=== PATIENT | male | born 1940 | race African-American/Black ===

== ENCOUNTER 2016-10-04 11:47 | Inpatient (IN) | payer MEDICARE ==
[~2016-10-04] VITALS: Ht 172.7 cm; Wt 49.7 kg
[~2016-10-04 11:47] MED LIST: ASPI325T; ISOS10TA; NITR.4T; NOVONP2; PRIN5TAB; TOPR25TA2; ZOCO40TA
[2016-10-04] MEDS ORDERED: ASPIRIN 81 MG CHEW TAB ONE (12:35)
[2016-10-04 12:55] LABS: BASOPHIL % 0.6 % (0.0-2.0); EOSINOPHIL # 0.1 TH/MM3 (0-0.4); EOSINOPHIL % 1.1 % (0.0-4.0); HEMATOCRIT 35.2 % (39.0-51.0); HEMO FLAGS DIFF FINAL; LYMPH % 27.2 % (9.0-44.0); LYMPHOCYTE # 1.3 TH/MM3 (1.0-4.8); MEAN CELL VOLUME 89.6 FL (80.0-100.0); MEAN CORPUSCULAR HGB CONC 33.5 % (32.0-36.0); MONO % 8.8 % (0.0-8.0); NEUT % 62.3 % (16.0-70.0); PLATELET COUNT 234 TH/MM3 (150-450); RED BLOOD COUNT 3.93 MIL/MM3 (4.50-5.90); WHITE BLOOD COUNT 4.8 TH/MM3 (4.0-11.0)
--- NOTE | 2016-10-04 13:01 | PD ---
Data Data Orders Orders Aspirin Chew (Aspirin Chew) (10/04/16 12:35) Ct Brain W/O Iv Contrast(Rout) (10/04/16 11:25) Complete Blood Count With Diff (10/04/16 12:35) Act Partial Throm Time (Ptt) (10/04/16 12:35) Prothrombin Time / Inr (Pt) (10/04/16 12:35) Basic Metabolic Profile, Op (10/04/16 12:35) Creatine Kinase (Cpk) (10/04/16 12:35) Troponin I (10/04/16 12:35) Urinalysis - C+S If Indicated (10/04/16 13:32) Admit Order (Ed Use Only) (10/04/16 14:34) Labs Laboratory Tests Test 10/04/16 12:35 10/04/16 13:50 White Blood Count 4.8 TH/MM3 Red Blood Count 3.93 MIL/MM3 Hemoglobin 11.8 GM/DL Hematocrit 35.2 % Mean Corpuscular Volume 89.6 FL Mean Corpuscular Hemoglobin 30.0 PG Mean Corpuscular Hemoglobin Concent 33.5 % Red Cell Distribution Width 14.0 % Platelet Count 234 TH/MM3 Mean Platelet Volume 8.3 FL Neutrophils (%) (Auto) 62.3 % Lymphocytes (%) (Auto) 27.2 % Monocytes (%) (Auto) 8.8 % Eosinophils (%) (Auto) 1.1 % Basophils (%) (Auto) 0.6 % Neutrophils # (Auto) 3.0 TH/MM3 Lymphocytes # (Auto) 1.3 TH/MM3 Monocytes # (Auto) 0.4 TH/MM3 Eosinophils # (Auto) 0.1 TH/MM3 Basophils # (Auto) 0.0 TH/MM3 CBC Comment DIFF FINAL Differential Comment Prothrombin Time 10.7 SEC Prothromb Time International Ratio 1.0 RATIO Activated Partial Thromboplast Time 29.9 SEC Sodium Level 141 MEQ/L Potassium Level 4.0 MEQ/L Chloride Level 106 MEQ/L Carbon Dioxide Level 29.2 MEQ/L Anion Gap 6 MEQ/L Blood Urea Nitrogen 19 MG/DL Creatinine 1.28 MG/DL Estimat Glomerular Filtration Rate 67 ML/MIN Fasting Glucose 161 MG/DL Calcium Level 8.9 MG/DL Total Creatine Kinase 45 U/L Troponin I LESS THAN 0.02 NG/ML Urine Color YELLOW Urine Turbidity CLEAR Urine pH 5.5 Urine Specific [place] 1.015 Urine Protein 30 mg/dL Urine Glucose (UA) 300 mg/dL Urine Ketones NEG mg/dL Urine Occult Blood NEG Urine Nitrite NEG Urine Bilirubin NEG Urine Urobilinogen LESS THAN 2.0 MG/DL Urine Leukocyte Esterase NEG Urine WBC LESS THAN 1 /hpf Urine Mucus FEW /lpf Microscopic Urinalysis Comment CULT NOT INDICATED Urine Opiates Screen NEG Urine Barbiturates Screen NEG Urine Amphetamines Screen NEG Urine Benzodiazepines Screen NEG Urine Cocaine Screen NEG Urine Cannabinoids Screen NEG MDM Supervised Visit with YADI: Yes Narrative Course I, Dr. Sims, have reviewed the advance practice practitioner's documentation and am in agreement, met with the patient face to face, made the diagnosis, and the medical decision making was done by me. *My assessment and Findings: Patient seen and examined by me in addition to Nestor Wade PA-C. Patient had awoken with right-sided weakness and some difficulty finding words. According to his the symptoms are now resolved. Could represent a TIA and discussed with patient his family my recommendations for workup and admission to the hospital and they're agreeable. There is no indication for stroke alert nor TPA at this time. Admitting Information Admitting Physician Requests: Observation Condition: Stable Julian Sims MD Oct 04, 2016 13:01
[2016-10-04 13:03] LABS: APTT (PATIENT) 29.9 SEC (24.3-30.1); PROTHROMBIN TIME - PATIENT 10.7 SEC (9.8-11.6)
[2016-10-04 13:12] LABS: ANION GAP 6 MEQ/L (5-15); BICARBONATE 29.2 MEQ/L (21.0-32.0); BLOOD UREA NITROGEN 19 MG/DL (7-18); CHLORIDE 106 MEQ/L (98-107); GLOMERULAR FILTRATION RATE 67 ML/MIN (>89); GLUCOSE,FASTING 161 MG/DL (74-99); SODIUM (NA) 141 MEQ/L (136-145)
[2016-10-04 13:16] LABS: CREATINE KINASE 45 U/L (39-308)
[2016-10-04] MEDS ORDERED: TOPR25TA PO (13:20)
[2016-10-04] MEDS ORDERED: ASPI1TAB91 PO (13:20)
[2016-10-04] MEDS ORDERED: LISI-519 PO (13:20)
[2016-10-04] MEDS ORDERED: PYRI100T PO (13:20)
[2016-10-04] MEDS ORDERED: CILO50TA PO (13:20)
[2016-10-04] MEDS ORDERED: SIMV10TA PO (13:20)
--- NOTE | 2016-10-04 13:43 | PD ---
HPI Chief Complaint: Neuro Symptoms/ Deficits Time Seen by Provider: 13:35 Travel History International Travel<30 days: No Contact w/Intl Traveler<30days: No History of Present Illness HPI Patient comes in with his son complaining of slurred speech and confusion that was first noticed between 9 and 10 AM this morning. Patient's last seen normal last night. Son reports that symptoms have improved and continued to improve. States patient has a history of stroke in the past. Patient denies any chest pain, shortness of breath, nausea, vomiting, headache, numbness or tingling anywhere, loss or change in bowel or bladder, or other concerns. Son denies doing anything for this prior to coming to the emergency department. Patient reportedly took his dose of baby aspirin this morning. PFSH Past Medical History Cardiac Catheterization: Yes (2003) High Cholesterol: Yes Diabetes: Yes Diminished Hearing: No Hypertension: Yes Psychiatric: No Myocardial Infarction: Yes (2001 AND 2003) Social History Alcohol Use: No Tobacco Use: Yes (1 PPD FOR 40 YEARS) Substance Use: No Allergies-Medications (Allergen,Severity, Reaction): Coded Allergies: No Known Allergies (Verified Allergy, Severe, 07/19/06) Reported Meds & Prescriptions Reported Meds & Active Scripts Active Reported Toprol XL (Metoprolol Succinate) 25 Mg Tab 12.5 Mg PO DAILY Lisinopril 5 Mg Tab 5 Mg PO HS Cilostazol 50 Mg Tab 50 Mg PO BID Simvastatin 10 Mg Tab 10 Mg PO HS Vitamin B-6 (Pyridoxine HCl) 100 Mg Tab 100 Mg PO DAILY Aspirin Adult Low Strength (Aspirin) 81 Mg Tabdr 81 Mg PO DAILY Review of Systems Except as stated in HPI: all other systems reviewed are Neg Physical Exam Narrative GENERAL: Well-developed, well nourished, in no acute distress, and non-ill appearing. SKIN: Focused skin assessment warm and dry. HEAD: Atraumatic. Normocephalic. EYES: Pupils equal and round. EOMI. No scleral icterus. No injection or drainage. ENT: No nasal bleeding or discharge. Mucous membranes pink and moist. NECK: Trachea midline. Supple. No nuclear rigidity. CARDIOVASCULAR: Regular rate and rhythm. No murmur appreciated. Radial 2+, intact, and equal bilaterally. RESPIRATORY: No accessory muscle use. No respiratory distress. Clear to auscultation. Breath sounds equal bilaterally. GASTROINTESTINAL: Abdomen soft, non-tender, nondistended, and no guarding. Hepatic and splenic margins not palpable. Normal bowel sounds 4. No pulsatile mass. MUSCULOSKELETAL: No obvious deformities. No clubbing. No cyanosis. No edema. Full range of motion. Right BKA noted. Shoulder:FROM equal BL with passive flexion, extension, Abduction, Adduction, internal/external rotation, and pronation/supination. Sensation equal BL deltoid muscles. Pulses equal BL distal to injury. Capillary refill less than 2 seconds distal to injury and equal BL. FROM distal to injury and equal BL. Strength distal to injury equal BL. NV intact distal to injury equal BL. Flexion and extension of thumb equal BL. Equal strength and movement with abduction/adductions of BL fingers. Dealer Support Technician strength equal BL. NEUROLOGICAL: Awake and alert. No obvious cranial nerve deficits. Motor grossly within normal limits. Normal speech. Small slightly asymmetrical on the left with mild deviation of the tongue to the right, which son reports is new, but improving. Equal rise and fall of eyebrows bilaterally. No pronator drift. PSYCHIATRIC: Appropriate mood and affect; insight and judgment normal. Data Data Orders Orders Aspirin Chew (Aspirin Chew) (10/04/16 12:35) Ct Brain W/O Iv Contrast(Rout) (10/04/16 11:25) Complete Blood Count With Diff (10/04/16 12:35) Act Partial Throm Time (Ptt) (10/04/16 12:35) Prothrombin Time / Inr (Pt) (10/04/16 12:35) Basic Metabolic Profile, Op (10/04/16 12:35) Creatine Kinase (Cpk) (10/04/16 12:35) Troponin I (10/04/16 12:35) Urinalysis - C+S If Indicated (10/04/16 13:32) Admit Order (Ed Use Only) (10/04/16 14:34) Labs Laboratory Tests Test 10/04/16 12:35 10/04/16 13:50 White Blood Count 4.8 TH/MM3 Red Blood Count 3.93 MIL/MM3 Hemoglobin 11.8 GM/DL Hematocrit 35.2 % Mean Corpuscular Volume 89.6 FL Mean Corpuscular Hemoglobin 30.0 PG Mean Corpuscular Hemoglobin Concent 33.5 % Red Cell Distribution Width 14.0 % Platelet Count 234 TH/MM3 Mean Platelet Volume 8.3 FL Neutrophils (%) (Auto) 62.3 % Lymphocytes (%) (Auto) 27.2 % Monocytes (%) (Auto) 8.8 % Eosinophils (%) (Auto) 1.1 % Basophils (%) (Auto) 0.6 % Neutrophils # (Auto) 3.0 TH/MM3 Lymphocytes # (Auto) 1.3 TH/MM3 Monocytes # (Auto) 0.4 TH/MM3 Eosinophils # (Auto) 0.1 TH/MM3 Basophils # (Auto) 0.0 TH/MM3 CBC Comment DIFF FINAL Differential Comment Prothrombin Time 10.7 SEC Prothromb Time International Ratio 1.0 RATIO Activated Partial Thromboplast Time 29.9 SEC Sodium Level 141 MEQ/L Potassium Level 4.0 MEQ/L Chloride Level 106 MEQ/L Carbon Dioxide Level 29.2 MEQ/L Anion Gap 6 MEQ/L Blood Urea Nitrogen 19 MG/DL Creatinine 1.28 MG/DL Estimat Glomerular Filtration Rate 67 ML/MIN Fasting Glucose 161 MG/DL Calcium Level 8.9 MG/DL Total Creatine Kinase 45 U/L Troponin I LESS THAN 0.02 NG/ML Urine Color YELLOW Urine Turbidity CLEAR Urine pH 5.5 Urine Specific [place] 1.015 Urine Protein 30 mg/dL Urine Glucose (UA) 300 mg/dL Urine Ketones NEG mg/dL Urine Occult Blood NEG Urine Nitrite NEG Urine Bilirubin NEG Urine Urobilinogen LESS THAN 2.0 MG/DL Urine Leukocyte Esterase NEG Urine WBC LESS THAN 1 /hpf Urine Mucus FEW /lpf Microscopic Urinalysis Comment CULT NOT INDICATED MDM Medical Decision Making Medical Screen Exam Complete: Yes Emergency Medical Condition: Yes Interpretation(s) EKG reviewed by Dr. Sims which shows sinus rhythm with ventricular rate of 70. No STEMI. CT the head read by the radiologist shows: Cerebral atrophy and chronic ischemic small vessel vasculopathy. Differential Diagnosis CVA, TIA, electrolyte abnormality, acute coronary syndrome, UTI, Narrative Course Patient was seen and examined. IV was established. Patient was in playground monitor. Initial laboratory neurological studies were ordered. Patient was given additional aspirin. Discussed patient with Dr. Sims, who saw and evaluated patient and is in agreement with plan of care. Discussed all laboratory and radiological findings with patient. Patient is agreeable for admission. All questions were answered. Patient remained stable throughout ED course. Discussed patient with residents, who are agreeable to admit the patient. Physician Communication Physician Communication [phone] this patient with residents hydroponics worker for Dr. Hastings, who are agreeable to admit the patient. Diagnosis Primary Impression: TIA (transient ischemic attack) Qualified Codes: G45.9 - Transient cerebral ischemic attack, unspecified Admitting Information Admitting Physician Requests: Observation Condition: Stable Daniel Wade Oct 04, 2016 13:43
--- NOTE | 2016-10-04 13:59 | RADRPT ---
EXAM DATE/TIME: 10/04/2016 13:33 [facility] COMPARISON: No previous studies available for comparison. INDICATIONS : Altered mental status today. RADIATION DOSE: 56.35 CTDIvol (mGy) MEDICAL HISTORY : Hypertension. Cardiovascular disease diabetes SURGICAL HISTORY : None. ENCOUNTER: Initial ACUITY: 1 day PAIN SCALE: 6/10 LOCATION: Right frontal head TECHNIQUE: Multiple contiguous axial images were obtained of the head. Using automated exposure control and adj ustment of the mA and/or kV according to patient size, radiation dose was kept as low as reasonably a chievable to obtain optimal diagnostic quality images. DICOM format image data is available electro nically for review and comparison. FINDINGS: CEREBRUM: The ventricles are normal for age. Cerebral atrophy. Minimal areas of low attenuation adjacent to the periventricular white matter. No evidence of midline shift, mass lesion, hemorrhage or acute infarc tion. No extra-axial fluid collections are seen. POSTERIOR FOSSA: The cerebellum and brainstem are intact. The 4th ventricle is midline. The cerebellopontine angle i s unremarkable. EXTRACRANIAL: The visualized portion of the orbits is intact. SKULL: The calvaria is intact. No evidence of skull fracture. CONCLUSION: Cerebral atrophy and chronic ischemic small vessel vasculopathy. Romario Becerra MD on October 04, 2016 at 13:57 Board Certified Radiologist. This report was verified electronically.
[2016-10-04 14:21] LABS: BLOOD, URINE NEG (NEG); COMMENT (UR) CULT NOT INDICATED; CULTURE IF INDICATED CULT NOT INDICATED; GLUCOSE,URINE 300 mg/dL (NEG); KETONE, URINE NEG (NEG); MUCUS URINE FEW /lpf (OCC); NITRITE,URINE NEG (NEG); PH, URINE 5.5 (5.0-8.5); URINE COLOR YELLOW (YELLW/STRAW)
--- NOTE | 2016-10-04 15:26 | HHI.HP ---
[facility] Service Family Medicine Primary Care Physician Mike Short MD Admission Diagnosis TIA Diagnoses: International Travel<30 Days: No Contact w/Intl Traveler<30days: No History of Present Illness Patient is a 76-year-old male with a past medical history of hypertension and diabetes presenting to the ED with transient altered mental status. Patient states that he woke this morning not able to talk correctly and answer questions. He felt something wasn't right. His son subsequently drove him to the hospital where his symptoms resolved. He states that he has been compliant with his medications at home. He says that he has been having slight headaches, no dizziness, no numbness, but tingling in the tips of his fingers for a while. He felt weak muscle weakness nor had facial droop this morning. He has not experienced anything like this before. No prior strokes. (Myranda Ayon MD R1) Review of Systems Constitutional: COMPLAINS OF: Weight loss (lost 10 lbs), DENIES: Fever, Chills Eyes: DENIES: Blurred vision Ears, nose, mouth, throat: COMPLAINS OF: Hearing loss (due to age), DENIES: Tinnitus, Vertigo Respiratory: DENIES: Cough, Shortness of breath Cardiovascular: DENIES: Chest pain, Palpitations Gastrointestinal: COMPLAINS OF: Diarrhea (for a few days, twice/day, watery, no blood), DENIES: Abdominal pain, Constipation Musculoskeletal: DENIES: Muscle aches, Joint Swelling Integumentary: DENIES: Rash Hematologic/lymphatic: DENIES: Bruising Immunologic/allergic: DENIES: Eczema Neurologic: COMPLAINS OF: Headache, DENIES: Localized weakness, Seizures (Myranda Ayon MD R1) Past Family Social History Past Medical History HTN DM Heart valve disease Past Surgical History 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 SKIN: No rashes, ecchymoses, stage II pressure ulcer 2 cm x 4 cm at the tailbone left of center. Cool and dry. HEAD: Atraumatic. Normocephalic. No temporal or scalp tenderness. EYES: Pupils equal round and reactive. Extraocular motions intact. No scleral icterus. No injection or drainage. ENT: Nose without bleeding, purulent drainage or septal hematoma. Throat without erythema, tonsillar hypertrophy or exudate. Uvula midline. Airway patent. NECK: Trachea midline. No JVD or lymphadenopathy. Supple, nontender, no meningeal signs. CARDIOVASCULAR: Regular rate and rhythm without murmurs, gallops, or rubs. RESPIRATORY: Clear to auscultation. Breath sounds equal bilaterally. No wheezes , rales, or rhonchi. GASTROINTESTINAL: Abdomen soft, non-tender, nondistended. No hepato-splenomegaly , or palpable masses. No guarding. MUSCULOSKELETAL: [id number] amputation on right leg. Extremity without clubbing, cyanosis, or edema. No joint tenderness, effusion, or edema noted. No calf tenderness. Negative Homans sign bilaterally. NEUROLOGICAL: Awake and alert. Cranial nerves II through XII intact. Motor and sensory grossly within normal limits. Five out of 5 muscle strength in all muscle groups, but dorsiflexion and plantar flexion in left foot 4/5. Normal speech. Laboratory Laboratory Tests Test 10/04/16 12:35 10/04/16 13:50 White Blood Count 4.8 Red Blood Count 3.93 Hemoglobin 11.8 Hematocrit 35.2 Mean Corpuscular Volume 89.6 Mean Corpuscular Hemoglobin 30.0 Mean Corpuscular Hemoglobin Concent 33.5 Red Cell Distribution Width 14.0 Platelet Count 234 Mean Platelet Volume 8.3 Neutrophils (%) (Auto) 62.3 Lymphocytes (%) (Auto) 27.2 Monocytes (%) (Auto) 8.8 Eosinophils (%) (Auto) 1.1 Basophils (%) (Auto) 0.6 Neutrophils # (Auto) 3.0 Lymphocytes # (Auto) 1.3 Monocytes # (Auto) 0.4 Eosinophils # (Auto) 0.1 Basophils # (Auto) 0.0 CBC Comment DIFF FINAL Differential Comment Prothrombin Time 10.7 Prothromb Time International Ratio 1.0 Activated Partial Thromboplast Time 29.9 Sodium Level 141 Potassium Level 4.0 Chloride Level 106 Carbon Dioxide Level 29.2 Anion Gap 6 Blood Urea Nitrogen 19 Creatinine 1.28 Estimat Glomerular Filtration Rate 67 Fasting Glucose 161 Calcium Level 8.9 Total Creatine Kinase 45 Troponin I LESS THAN 0.02 Urine Color YELLOW Urine Turbidity CLEAR Urine pH 5.5 Urine Specific [place] 1.015 Urine Protein 30 Urine Glucose (UA) 300 Urine Ketones NEG Urine Occult Blood NEG Urine Nitrite NEG Urine Bilirubin NEG Urine Urobilinogen LESS THAN 2.0 Urine Leukocyte Esterase NEG Urine WBC LESS THAN 1 Urine Mucus FEW Microscopic Urinalysis Comment CULT NOT INDICATED (Myranda Ayon MD R1) Result Diagram: 10/04/16 1235 10/04/[address] brain w/o contrast: Cerebral atrophy and chronic ischemic small vessel vasculopathy. US carotid arteries: No evidence for hemodynamically significant stenosis. (Myranda Ayon MD R1) Caprini VTE Risk Assessment Caprini VTE Risk Assessment: Mod/High Risk (score >= 2) Caprini Risk Assessment Model Point Value = 1 Point Value = 2 Point Value = 3 Point Value = 5 Age 41-60 Minor surgery BMI > 25 kg/m2 Swollen legs Varicose veins or History of unexplained or recurrent spontaneous Oral contraceptives or hormone replacement Sepsis (< 1 month) Serious lung disease, including pneumonia (< 1 month) Abnormal pulmonary function Acute myocardial infarction Congestive heart failure (< 1 month) History of inflammatory bowel disease Medical patient at bed rest Age 61-74 Arthroscopic surgery Major open surgery (> 45 min) Laparoscopic surgery (> 45 min) Malignancy Confined to bed (> 72 hours) Immobilizing plaster cast Central venous access Age >= 75 History of VTE Family history of VTE Factor V Leiden Prothrombin [id number] Lupus anticoagulant Anticardiolipin antibodies Elevated serum homocysteine Heparin-induced thrombocytopenia Other congenital or acquired thrombophilia Stroke (< 1 month) Elective arthroplasty Hip, pelvis, or leg fracture Acute spinal cord injury (< 1 month) Prophylaxis Regimen Total Risk Factor Score Risk Level Prophylaxis Regimen 0-1 Low Early ambulation 2 Moderate Order ONE of the following: *Sequential Compression Device (SCD) *Heparin 5000 units SQ BID 3-4 Higher Order ONE of the following medications: *Heparin 5000 units SQ TID *Enoxaparin/Lovenox 40 mg SQ daily (WT < 150 kg, CrCl > 30 mL/min) *Enoxaparin/Lovenox 30 mg SQ daily (WT < 150 kg, CrCl > 10-29 mL/min) *Enoxaparin/Lovenox 30 mg SQ BID (WT < 150 kg, CrCl > 30 mL/min) AND/OR *Sequential Compression Device (SCD) 5 or more Highest Order ONE of the following medications: *Heparin 5000 units SQ TID (Preferred with Epidurals) *Enoxaparin/Lovenox 40 mg SQ daily (WT < 150 kg, CrCl > 30 mL/min) *Enoxaparin/Lovenox 30 mg SQ daily (WT < 150 kg, CrCl > 10-29 mL/min) *Enoxaparin/Lovenox 30 mg SQ BID (WT < 150 kg, CrCl > 30 mL/min) AND *Sequential Compression Device (SCD) (Myranda Ayon MD R1) Assessment and Plan Assessment and Plan Mr. Branham is a 76-year-old male with a past medical history of hypertension and diabetes presenting to the ED with transient dyslogia. Likely a TIA since symptoms have now resolved versus CVA Code Status Full code Discussed Condition With Dr. Mejia and Dr. Hastings (Myranda Ayon MD R1) Attending Attestation THIS CASE WAS DISCUSSED WITH THE RESIDENT PHYSICIANS. I HAVE REVIEWED THE RECORD AND AGREE WITH THE ABOVE NOTE AND PLAN OF CARE WAS DISCUSSED. I HAVE AUTHORIZED THE ORDER FOR ADMISSION TO AN IN-PATIENT STATUS. (Tay Hastings MD) Problem List: (1) TIA (transient ischemic attack) ICD Codes: G45.9 - Transient cerebral ischemic attack, unspecified Status: Acute Plan: Dyslogia resolved after admission to hospital. Most likely a TIA. CT brain w/o contrast showed cerebral atrophy and chronic ischemic small vessel vasculopathy. Brain MRI and head MRA pending report by radiologist. Stroke workup. US carotid arteries: No evidence for hemodynamically significant stenosis. -Neurology consult, appreciate recommendations -Ordered echocardiogram -Ordered MRI brain without contrast -Ordered MRA brain without contrast -Ordered ultrasound carotid arteries -Troponins 2 -EKG 2 -A.m. labs (2) Hypertension ICD Codes: I10 - Essential (primary) hypertension Status: Chronic Plan: At-home medications held -Permissive hypertension (3) Diabetes mellitus ICD Codes: E11.9 - Type 2 diabetes mellitus without complications Status: Chronic Plan: -At-home medications held -Sliding scale insulin -Regular blood glucose checks (4) Hyperlipemia ICD Codes: E78.5 - Hyperlipidemia, unspecified Status: Chronic Plan: Continue at home Cilostazol 50mg po Atorvastatin 40 mg by mouth at bedtime (5) FEN Status: Acute Plan: Fluids: Patient should be able to hydrate by mouth Electrolytes: Monitor and replace as needed Nutrition: Regular diet after swallow tests by nurse DVT prophylaxis: Enoxaparin Tylenol as needed for pain (Myranda Ayon MD R1) Physician Certification 2 Midnight Certification Type: Admission for Inpatient Services Order for Inpatient Services The services are ordered in accordance with Medicare regulations or non- Medicare payer requirements, as applicable. In the case of services not specified as inpatient-only, they are appropriately provided as inpatient services in accordance with the 2-midnight benchmark. Estimated LOS (days): 2 days is the estimated time the patient will need to remain in the hospital, assuming treatment plan goals are met and no additional complications. Post-Hospital Plan: Home (Myranda Ayon MD R1) Problem Qualifiers (1) TIA (transient ischemic attack): Qualified Codes: G45.9 - Transient cerebral ischemic attack, unspecified (2) Hypertension: Qualified Codes: I10 - Essential (primary) hypertension (3) Diabetes mellitus: (4) Hyperlipemia: Qualified Codes: E78.5 - Hyperlipidemia, unspecified Myranda Ayon MD R1 Oct 04, 2016 15:26 Tay Hastings MD Oct 05, 2016 16:26
[2016-10-04] MEDS ORDERED: SODIUM CHLORIDE 0.9% FLUSH 5 ML FLUSH IV FLUSH PRN (15:45)
[2016-10-04] MEDS ORDERED: GLUCAGON 1 MG/ML VIAL OTHER PRN (15:45)
[2016-10-04] MEDS ORDERED: DEXTROSE 50% IN WATER 50 ML VIAL(D50) IV PUSH PRN (15:45)
--- NOTE | 2016-10-04 16:46 | RADRPT ---
EXAM DATE/TIME: 10/04/2016 15:52 [facility] COMPARISON: No previous studies available for comparison. INDICATIONS : Cerebrovascular accident. MEDICAL HISTORY : Myocardial infarction. Hypercholesterolemia. Hypertension. Hearing loss. Glasse s. Diabetes. SURGICAL HISTORY : Cardiac Catheterization. ENCOUNTER: Initial ACUITY: 1 day PAIN SCORE: 0/10 LOCATION: Bilateral neck PEAK SYSTOLIC VELOCITIES (cm/sec): ICA/CCA RATIO: Right: 1.7 Left: 1.6 ICA: Right: 89.2 Left: 85.3 CCA: Right: 53.7 Left: 54.3 ECA: Right: 64.7 Left: 51.4 VERTEBRAL: Right: 58.1 antegrade Left: 45.3 antegrade Elevated flow velocities and ICA/CCA ratios have been found to correlate with increased degrees of vessel stenosis, calculated as percentage of diameter relative to a normal segment of distal ICA/CCA FINDINGS: Antegrade flow is seen in both vertebral arteries. There is moderate atherosclerotic plaquing at the origin of both ICAs without any significant stenosis. CONCLUSION: No evidence for hemodynamically significant stenosis. Dion Petit MD on October 04, 2016 at 16:44 Board Certified Radiologist. This report was verified electronically.
[2016-10-04 17:41] VITALS: BP 148/69; PULSE 71; RESP 16; O2SAT 100
[2016-10-04] MEDS: ENOXAPARIN SODIUM 40 MG/0.4 ML SYRINGE SQ SCH (17:50)
[2016-10-04] MEDS: INSULIN ASPART SUPPLEMENTAL SCALE SQ SCH ×2 (17:50→21:00)
[2016-10-04 19:30] VITALS: O2SAT 98
--- NOTE | 2016-10-04 20:09 | RADRPT ---
EXAM DATE/TIME: 10/04/2016 18:23 [facility] COMPARISON: MRI BRAIN W/O CONTRAST, October 04, 2016, 18:23. INDICATIONS : Slurred speech. Difficulty following commands. MEDICAL HISTORY : Hypertension. Diabetes mellitus type 2. Cardiovascular disease. TIA. SURGICAL HISTORY : Valve replacement. BKA. ENCOUNTER: Initial ACUITY: 1 day PAIN SCORE: 0/10 LOCATION: cranial Please note a normal MRA of the brain does not entirely exclude the possibility of a small aneurysm, nor the possibility of distal intracranial vessel disease. TECHNIQUE: 3D time of flight MRA was performed. Source images, multiplanar STS MIP, and 3D volume MIP reconstru ctions were reviewed. FINDINGS: There is excellent visualization of the major intracranial arteries out to the second-order branch ve ssels. There is no evidence for aneurysm, vessel truncation or stenosis, and no evidence for vascula r malformation. CONCLUSION: Normal examination. Dion Petit MD on October 04, 2016 at 20:03 Board Certified Radiologist. This report was verified electronically.
--- NOTE | 2016-10-04 20:10 | RADRPT ---
EXAM DATE/TIME: 10/04/2016 18:23 [facility] COMPARISON: MRA BRAIN W/O CONTRAST, October 04, 2016, 18:23. US CAROTID ARTERIES, October 04, 2016, 15:52. CT BRA IN W/O CONTRAST, October 04, 2016, 13:33. INDICATIONS : Slurred speech. Difficulty following commands. MEDICAL HISTORY : Hypertension. Diabetes mellitus type 2. Cardiovascular disease. TIA. Neuropathy. SURGICAL HISTORY : BKA. Valve replacement. ENCOUNTER: Initial ACUITY: 1 day PAIN SCORE: 0/10 LOCATION: cranial TECHNIQUE: Multiplanar, multisequence MRI of the brain was performed without contrast. FINDINGS: There is no evidence for intracranial hemorrhage, mass effect, mass lesions, edema, or extra-axial fl uid collections. There are no signs of acute infarction for technique. The diffusion portion is unre markable. Slight degree of brain atrophy is seen. Slight periventricular white matter changes are see n nonspecific mostly consistent with chronic small vessel ischemic changes. CONCLUSION: Chronic atrophic and small vessel ischemic changes without any evidence for acute hem orrhage or mass effect. Dion Petit MD on October 04, 2016 at 20:07 Board Certified Radiologist. This report was verified electronically.
[2016-10-04 20:50] VITALS: BP 162/75; PULSE 78; RESP 18; TEMP 96.7; O2SAT 99
[2016-10-04] MEDS ORDERED: ATORVASTATIN 10 MG TAB PO SCH (21:00)
--- NOTE | 2016-10-04 21:47 | EKG ---
Date Performed: 10/04/2016 Time Performed: 12:57:28 PTAGE: 76 years EKG: Sinus rhythm POSSIBLE EARLY REPOLARIZATION ABNORMALITY NO PREVIOUS TRACING DOCTOR: Lan Marie Interpretating Date/Time 10/04/2016 21:45:36
--- NOTE | 2016-10-04 22:42 | MB ---
cc: MIKKI CARTER DATE OF CONSULTATION 10/04/2016 HISTORY OF THE PRESENT ILLNESS A 76-year-old, hypertension, insulin dependent diabetes, hypercholesterolemia, MD, cardiac stent. He takes a baby aspirin a day and this morning he felt a little confused in his mind, some slurred speech, came into the hospital. He denied any stroke to me although the chart says he has had a stroke in the past. REVIEW OF SYSTEMS He denies any atrial fibrillation, Coumadin, renal, hepatic, or pulmonary disease, thyroid disease, lupus, ulcer, cancer, seizure or stroke. SOCIAL HISTORY Not a smoker or a drinker. Lives with his . FAMILY HISTORY Negative for cancer, seizure or stroke. MEDICATIONS At home: 1. 81 of aspirin. 2. B6. 3. Simvastatin. 4. Cilostazol. 5. Lisinopril. 6. Toprol. ALLERGIES NO KNOWN DRUG ALLERGIES. PAST MEDICAL AND SURGICAL HISTORY 1. History of cardiac catheterization. 2. Heart valve replacement. 3. Right leg amp. PHYSICAL EXAMINATION VITAL SIGNS: On examination sinus rhythm 148/69, afebrile, 84, 18. NECK: There were no carotid bruits. CARDIOVASCULAR: Heart was regular rate and rhythm. I did not detect a murmur. NEUROLOGIC: Speech is a little bit slurred but he is not aphasic. Pupils are equal. Visual alcantara full. Extraocular movements intact without nystagmus. Face symmetric with normal sensation. Tongue was midline. No drift. Normal strength in the upper extremities bilaterally and bilateral lower extremities although he has the amputation on the right lower extremity and a left foot drop. The left toe was mute. Pinprick was intact throughout proximal lower extremities, upper extremities and face. LABORATORY DATA CBC is essentially unremarkable. UA 300 of glucose. Positive ketones. Basic metabolic profile is normal, glucose 161. Troponin, CPK is normal. LDL cholesterol was normal 10 years ago. Coags normal. IMAGING CT scan of the brain was performed, there is some atrophy and white matter changes. Carotid ultrasound was done today essentially normal. MRI of the brain performed official report is pending. Review of the films, diffuse atrophy is noted. There is no acute infarct. No hemorrhages noted, although there is [place] artifact in the left intraventricular region posterior. MRA sun'aq of [place] also appears to be intact. IMPRESSION No stroke here. I think we will switch him to Plavix, check his LDL. I am not sure why he has got slurred speech. Do a urine drug screen on him. Some other blood work, but he may be able to be discharged later tomorrow depending on how his echocardiogram looks. We will have to put him for an echocardiogram and Holter monitor. Switch him to Plavix. I would discontinue his aspirin in three days. Check his lipid profile. Check an EEG. MD PENG Anderson/KK /7:58 PM /10:20 PM
[2016-10-04] MEDS: SODIUM CHLORIDE 0.9% FLUSH 5 ML FLUSH IV FLUSH SCH (23:56)
[2016-10-04] MEDS: CLOPIDOGREL 75 MG TAB PO SCH (23:58)
[2016-10-04] MEDS: CILOSTAZOL 50 MG TAB PO SCH (23:58)
[2016-10-05] VITALS (8 sets, daily range): BP systolic 121–154; BP diastolic 62–78; PULSE 67–89; RESP 17–18; TEMP 95.3–96.7; O2SAT 97–100
[2016-10-05 06:01] LABS: AUTOMATED NEUTROPHIL # 1.7 TH/MM3 (1.8-7.7); BASOPHIL % 0.3 % (0.0-2.0); EOSINOPHIL # 0.1 TH/MM3 (0-0.4); EOSINOPHIL % 1.8 % (0.0-4.0); HEMATOCRIT 35.7 % (39.0-51.0); HEMO FLAGS DIFF FINAL; LYMPH % 43.3 % (9.0-44.0); LYMPHOCYTE # 1.7 TH/MM3 (1.0-4.8); MEAN CORPUSCULAR HEMOGLOBIN 30.1 PG (27.0-34.0); MEAN CORPUSCULAR HGB CONC 33.5 % (32.0-36.0); MONO % 10.4 % (0.0-8.0); NEUT % 44.2 % (16.0-70.0); PLATELET COUNT 216 TH/MM3 (150-450); RED BLOOD COUNT 3.97 MIL/MM3 (4.50-5.90); RED CELL DISTRIBUTION WIDTH 13.4 % (11.6-17.2); WHITE BLOOD COUNT 3.9 TH/MM3 (4.0-11.0)
[2016-10-05] MEDS: INSULIN ASPART SUPPLEMENTAL SCALE SQ SCH ×4 (06:40→21:00)
[2016-10-05 07:09] LABS: ANION GAP 6 MEQ/L (5-15); BICARBONATE 26.1 MEQ/L (21.0-32.0); BLOOD UREA NITROGEN 15 MG/DL (7-18); CHLORIDE 106 MEQ/L (98-107); GLOMERULAR FILTRATION RATE 72 ML/MIN (>89); HDL CHOLESTEROL 45.5 MG/DL (40.0-60.0); LDL CHOLESTEROL 150 MG/DL (0-99); POTASSIUM 3.9 MEQ/L (3.5-5.1); SODIUM (NA) 138 MEQ/L (136-145)
--- NOTE | 2016-10-05 07:24 | HHI.PR ---
Subjective Remarks sr Objective Vital Signs Date Time Temp Pulse Resp B/P (MAP) Pulse Ox O2 Delivery O2 Flow Rate FiO2 10/05/16 03:40 96.7 76 17 140/62 (88) 99 10/05/16 00:58 96.4 67 18 153/74 (100) 97 10/04/16 20:50 96.7 78 18 162/75 (104) 99 10/04/16 19:30 98 10/04/16 17:41 71 16 148/69 (95) 100 Room Air I/O 10/04/16 10/04/16 10/04/16 10/05/16 10/05/16 10/05/16 07:00 15:00 23:00 07:00 15:00 23:00 Intake Total 0 ml 0 ml Output Total 300 ml Balance 0 ml -300 ml Intake Oral 0 ml 0 ml Output Urine Total 300 ml # Voids 1 # Bowel Movements 0 0 Result Diagram: 10/05/16 0552 10/05/16 0552 Objective Remarks vff face sym 5/5 t/o speech clearer no aphasia Assessment and Plan Assessment and Plan imp mri /a us neg esr 41 check crp inc ldl ? inc statin dose? if eeg done and echo neg and holter on he can dc later today on plavix and dc asa in two days med team fu crp later today Salvatore Paez MD Oct 05, 2016 07:24
[2016-10-05] MEDS: SODIUM CHLORIDE 0.9% FLUSH 5 ML FLUSH IV FLUSH SCH ×2 (09:00→21:00)
--- NOTE | 2016-10-05 09:26 | HHI.FPPN ---
Subjective Remarks FM Attending Note: Patient seen and examined. S: Chart and all resident physician notes reviewed. In summary this is a 76 year old male who was admitted with an admission diagnosis of TIA. This patient has a past medical history of hypertension and diabetes who presented with transient alteration of his mental status. The patient reported that he awoke the morning of admission and was not able to talk correctly answer questions. From his description it appears that he had difficulty expressing his speech. His son drove him to the hospital but on arrival his symptoms had mostly resolved. At the current time he has no neurologic deficits. This patient has significant chronic medical problems including diabetes, valvular heart disease for which he had a bioprosthetic valve placed. He also has a history of peripheral vascular disease with amputation of his right leg above the knee. He has also been under treatment for a sacral decubitus ulcer. The patient's son reports that this has significantly improved over the last few weeks. The patient reported a 10 pound weight loss over the last month that he apparently had difficulty with diarrhea. Cultures drawn at the MT of his stool reported to him as showing bacteria but the physicians told him that an antibiotic was not indicated. The family has been treating with dietary changes and no diarrhea has mostly resolved. Objective Vitals Vital Signs Date Time Temp Pulse Resp B/P (MAP) Pulse Ox O2 Delivery O2 Flow Rate FiO2 10/05/16 08:00 95.3 78 18 124/69 (87) 100 10/05/16 03:40 96.7 76 17 140/62 (88) 99 10/05/16 00:58 96.4 67 18 153/74 (100) 97 10/04/16 20:50 96.7 78 18 162/75 (104) 99 10/04/16 19:30 98 10/04/16 17:41 71 16 148/69 (95) 100 Room Air I/O 10/04/16 10/04/16 10/04/16 10/05/16 10/05/16 10/05/16 07:00 15:00 23:00 07:00 15:00 23:00 Intake Total 0 ml 0 ml Output Total 300 ml Balance 0 ml -300 ml Intake Oral 0 ml 0 ml Output Urine Total 300 ml # Voids 1 # Bowel Movements 0 0 Result Diagram: 10/05/16 0552 10/05/16 0552 Other Results Item Value Date Time Erythrocyte Sedimentation Rate 41 mm/hr H 10/04/162054 Total Creatine Kinase 45 U/L 10/04/161234 Troponin I LESS THAN 0.02 NG/ML L 10/04/161234 Troponin I LESS THAN 0.02 NG/ML L 10/04/162054 Troponin I LESS THAN 0.02 NG/ML L 10/05/16 0552 Triglycerides Level 127 MG/DL 10/05/1652 Cholesterol Level 221 MG/DL H 10/05/1652 LDL Cholesterol 150 MG/DL H 10/05/16 0552 HDL Cholesterol 45.5 MG/DL 10/05/16551 Cholesterol/HDL Ratio 4.85 RATIO 10/05/16 05 Vitamin B12 Level 692 PG/ML 10/05/16551 Free Thyroxine 1.00 NG/DL 10/05/16551 Thyroid Stimulating Hormone 3rd Gen 1.030 uIU/ML 10/05/16 0552 Anti-Nuclear Antibody Screen POS H 10/04/162054 Rapid Plasma Reagin REACTIVE H 10/04/162054 Urine Specific [place] 1.015 10/04/16 1350 Urine Glucose (UA) 300 mg/dL H 10/04/16 1350 Urine Occult Blood NEG 10/04/16 1350 Urine Nitrite NEG 10/04/16 1350 Urine Leukocyte Esterase NEG 10/04/16 1350 Urine WBC LESS THAN 1 /hpf 10/04/16 1350 Urine Mucus FEW /lpf H 10/04/16 1350 Prothromb Time International Ratio 1.0 RATIO 10/04/16 123 Activated Partial Thromboplast Time 29.9 SEC 10/04/16 1235 Prothrombin Time 10.7 SEC 10/04/16 1235 Imaging Multiple imaging studies are unremarkable. Brain MRI showed chronic atrophic and small vessel ischemic changes without any evidence for acute hemorrhage or mass effect. Carotid ultrasound was negative. Objective Remarks O. CONSTITUTIONAL/GEN: normally nourished, in NAD. EYES: conjunctiva normal, PERRLA, EOMI. LUNGS: clear A-P, respiratory effort is normal. CARDIOVASCULAR: RR without murmur or gallop. No significant edema. GI/ABD: soft without masses, without organomegaly. : no CVA tenderness NEURO: No focal deficits. SKIN: stage III pressure ulcer 2 cm x 4 cm at the tailbone left of center. HEME/LYMPH: no bruising, petechia or significant adenopathy MUSC: back is normal in appearance. R AKA. PSYCH/MENTAL STATUS: Alert and oriented x 3. A/P Assessment and Plan Mr. Branham is a 76-year-old male with a past medical history of hypertension and diabetes presenting to the ED with transient dyslogia. Likely a TIA since symptoms have now resolved versus CVA Problem List: (1) TIA (transient ischemic attack) ICD Codes: G45.9 - Transient cerebral ischemic attack, unspecified Status: Acute Plan: Dyslogia resolved after admission to hospital. Most likely a TIA. CT brain w/o contrast showed cerebral atrophy and chronic ischemic small vessel vasculopathy. Brain MRI and head MRA pending report by radiologist. Stroke workup. US carotid arteries: No evidence for hemodynamically significant stenosis. -Neurology consult, appreciate recommendations -Ordered echocardiogram -Ordered MRI brain without contrast -Ordered MRA brain without contrast -Ordered ultrasound carotid arteries -Troponins 2 -EKG 2 -A.m. labs 10/05/16 Imaging studies have been negative. The patient has been seen initially by neurology who recommends switching aspirin to Plavix. Awaiting further evaluation and tests. (2) Hypertension ICD Codes: I10 - Essential (primary) hypertension Status: Chronic Plan: At-home medications held -Permissive hypertension (3) Sacral decubitus ulcer, stage III ICD Codes: L89.153 - Pressure ulcer of sacral region, stage 3 Plan: 10/05/16 This is been present for several months. By report of the patient's son it is significantly improved over the last several weeks. Will ask nursing wound care to evaluate and suggest treatments. (4) Diabetes mellitus ICD Codes: E11.9 - Type 2 diabetes mellitus without complications Status: Chronic Plan: -At-home medications held -Sliding scale insulin -Regular blood glucose checks (5) Hyperlipemia ICD Codes: E78.5 - Hyperlipidemia, unspecified Status: Chronic Plan: Continue at home Cilostazol 50mg po Atorvastatin 40 mg by mouth at bedtime (6) FEN Status: Acute Plan: Fluids: Patient should be able to hydrate by mouth Electrolytes: Monitor and replace as needed Nutrition: Regular diet after swallow tests by nurse DVT prophylaxis: Enoxaparin Tylenol as needed for pain Problem Qualifiers (1) TIA (transient ischemic attack): Qualified Codes: G45.9 - Transient cerebral ischemic attack, unspecified (2) Hypertension: Qualified Codes: I10 - Essential (primary) hypertension (3) Diabetes mellitus: (4) Hyperlipemia: Qualified Codes: E78.5 - Hyperlipidemia, unspecified Tay Hastings MD Oct 05, 2016 09:26
[2016-10-05] MEDS: ASPIRIN 325 MG TAB PO SCH (10:12)
[2016-10-05] MEDS: PYRIDOXINE HCL 50 MG TAB PO SCH (10:12)
[2016-10-05] MEDS: CLOPIDOGREL 75 MG TAB PO SCH (10:12)
[2016-10-05] MEDS: ENOXAPARIN SODIUM 40 MG/0.4 ML SYRINGE SQ SCH (10:12)
[2016-10-05] MEDS: CILOSTAZOL 50 MG TAB PO SCH ×2 (10:18→22:23)
--- NOTE | 2016-10-05 10:48 | RADRPT ---
EXAM DATE/TIME: 10/05/2016 09:46 [facility] COMPARISON: No previous studies available for comparison. INDICATIONS : Short of breath. MEDICAL HISTORY : Myocardial infarction. Hypertension Diabetes mellitus type II. cardivascular disease, TIA SURGICAL HISTORY : mitral valve surgery. ENCOUNTER: Initial ACUITY: 2 days PAIN SCORE: 0/10 LOCATION: Bilateral chest FINDINGS: A single view of the chest demonstrates the lungs to be symmetrically aerated without evidence of mas s, infiltrate or effusion. Postsurgical features of prior median sternotomy and cardiac valve replace ment. The cardiomediastinal contours are unremarkable. Osseous structures are intact. CONCLUSION: 1. No acute cardiopulmonary disease. Nitesh Ricks MD on October 05, 2016 at 10:46 Board Certified Radiologist. This report was verified electronically.
--- NOTE | 2016-10-05 11:23 | PD.WCN.NOT ---
Wound Consult Description: Sacral scar tissue opening to full thickness wound on L upper buttock stage 3 Communicated with: BRENDAN Love and call placed to Doctor Bart Malcolm Recommendation: Please cleanse L upper buttock wound with normal saline only. Apply skin prep to periwound and before applying adhesive foam dressing. Please change dressing every 3 days or PRN if saturated or dislodged Please obtain [place] airapy bed if not available please obtain [facility] bed. Turn patient every 2 hours and PRN for comfort Additional Information: Patient seen on for evaluation of pressure ulcer to sacrum. Removed old brief and shorts in place and turned patient to L side with minimal assist. Patient noted with Scar tissue to sacral and bilateral upper buttock area that is opening to full thickness wound on L upper buttock. Wound measures 0.8cm x 0.4cm x ~0.2cm. Wound presents with ~50% red granulated tissue and ~50% adipose tissue. Wound is with in scar tissue that measures ~8cm x ~8cm. Scant serous drainage is noted without odor. Periwound presents with intact scar tissue.Wound margins are attached, uneven and well defined.Cleansed wound with normal saline and applied skin prep to periwound before applying adhesive foam dressing.Appears to have previous healed pressure injury that is reopened to full thickness. [facility] Motley [facility] Oct 05, 2016 11:23
[2016-10-05 12:26] LABS: ANA SCREEN POS (NEG)
[2016-10-05] MEDS: SODIUM CHLOR 0.9% 1000 ML INJ 1,000 ML IV SCH ×2 (18:36→22:25)
[2016-10-05] MEDS ORDERED: LEVEMIR SQ (20:36)
[2016-10-05] MEDS ORDERED: NOVORP2 SQ (20:36)
[2016-10-05] MEDS: ATORVASTATIN 80 MG TAB PO SCH (22:23)
[2016-10-05] MEDS: INSULIN DETEMIR 100 UNITS/ML VIAL SQ SCH (22:24)
--- NOTE | 2016-10-05 22:30 | MG ---
cc: NABEEL CARCAMO MD Lab No: Date: 10/05/2016 Age: Sex: M Race: DATE OF [address] Browning. Medical history: 1. History of headache. 2. Heart attack. 3. Hypertension. 4. Renal disease. 5. Diabetes. 6. Tobacco and caffeine abuse. 7. Hypercholesterolemia. 8. With recent onset slurred speech and confusion. MEDICATIONS 1. Aspirin. 2. Lipitor. 3. Plavix. 4. Lovenox. 5. Insulin aspart. DESCRIPTION The background activity is 8-9 Hz alpha located posteriorly bilateral and symmetrical. Attenuates to eye opening, superimposed by beta activity. Hyperventilation was not done. Photic stimulation did not elicit a driving response. During the recording the patient transitioned to stage II sleep with drop out of the background alpha rhythm that was replaced by theta activity and appearance of K complexes. The EEG recording is contaminated by excessive muscle artifact. There is breech rhythm at T3 and T4. There were no electrographic seizures or epileptiform discharges noted during the recording. INTERPRETATION This is an awake and sleep EEG recording. Excess beta activity is a non- specific finding that may be related to medication adverse effect like benzos and barbiturates. Absence of electrographic seizures or epileptiform discharges does not rule out a diagnosis of epilepsy. Clinical correlation is recommended. Nabeel Carcamo MD RGO/KK /9:14 PM /10:24 PM [facility] CENTERJenae
[2016-10-06] VITALS (8 sets, daily range): BP systolic 127–175; BP diastolic 63–90; PULSE 87–91; RESP 16–18; TEMP 96.4–98.3; O2SAT 98–100
[2016-10-06] MEDS: INSULIN ASPART SUPPLEMENTAL SCALE SQ SCH ×4 (06:36→22:12)
--- NOTE | 2016-10-06 06:47 | HHI.PR ---
Subjective Remarks sr Objective Vital Signs Date Time Temp Pulse Resp B/P (MAP) Pulse Ox O2 Delivery O2 Flow Rate FiO2 10/06/16 04:30 96.4 89 16 151/73 (99) 99 10/06/16 00:00 98.3 90 16 131/77 (95) 100 10/05/16 20:45 96.2 87 17 121/65 (83) 99 10/05/16 18:05 89 10/05/16 16:00 95.8 75 17 142/78 (99) 100 10/05/16 12:10 100 21 10/05/16 12:00 95.5 79 18 154/72 (99) 100 10/05/16 08:00 95.3 78 18 124/69 (87) 100 I/O 10/05/16 10/05/16 10/05/16 10/06/16 10/06/16 10/06/16 07:00 15:00 23:00 07:00 15:00 23:00 Intake Total 0 ml 720 ml 240 ml Output Total 300 ml 350 ml Balance -300 ml 720 ml -110 ml Intake Oral 0 ml 720 ml 240 ml Output Urine Total 300 ml 350 ml # Voids 3 # Bowel Movements 0 1 0 Result Diagram: 10/05/16 0552 10/05/16 0552 Objective Remarks vff face sym 5/5 t/o speech clear and nl now abner diarrhea Assessment and Plan Assessment and Plan imp mri /a us neg esr 41 check crp ok inc ldl ? inc statin dose? eeg neg echo pend if echo neg and holter on he can dc later today on plavix and dc asa in one days his rpr pos check fta id consulted jose pos titer pend neurowise doing Salvatore Dickerson MD Oct 06, 2016 06:47
--- NOTE | 2016-10-06 06:51 | HHI.PR ---
Subjective Remarks sr Objective Vital Signs Date Time Temp Pulse Resp B/P (MAP) Pulse Ox O2 Delivery O2 Flow Rate FiO2 10/06/16 04:30 96.4 89 16 151/73 (99) 99 10/06/16 00:00 98.3 90 16 131/77 (95) 100 10/05/16 20:45 96.2 87 17 121/65 (83) 99 10/05/16 18:05 89 10/05/16 16:00 95.8 75 17 142/78 (99) 100 10/05/16 12:10 100 21 10/05/16 12:00 95.5 79 18 154/72 (99) 100 10/05/16 08:00 95.3 78 18 124/69 (87) 100 I/O 10/05/16 10/05/16 10/05/16 10/06/16 10/06/16 10/06/16 07:00 15:00 23:00 07:00 15:00 23:00 Intake Total 0 ml 720 ml 240 ml Output Total 300 ml 350 ml Balance -300 ml 720 ml -110 ml Intake Oral 0 ml 720 ml 240 ml Output Urine Total 300 ml 350 ml # Voids 3 # Bowel Movements 0 1 0 Result Diagram: 10/05/16 0552 10/05/16 0552 Objective Remarks vff face sym 5/5 t/o speech clear and nl now some diarrhea Assessment and Plan Assessment and Plan imp mri /a us neg esr 41 check crp ok inc ldl ? inc statin dose? eeg neg echo pend if echo neg and holter on he can dc later today on plavix and dc asa in one days his rpr pos check fta id consulted jose pos titer pend neurowise doing Salvatore Dickerson MD Oct 06, 2016 06:51
[2016-10-06 07:03] LABS: HEMATOCRIT 34.2 % (39.0-51.0); MEAN CELL VOLUME 89.7 FL (80.0-100.0); MEAN CORPUSCULAR HEMOGLOBIN 30.1 PG (27.0-34.0); MEAN CORPUSCULAR HGB CONC 33.6 % (32.0-36.0); PLATELET COUNT 202 TH/MM3 (150-450); RED BLOOD COUNT 3.82 MIL/MM3 (4.50-5.90); RED CELL DISTRIBUTION WIDTH 13.6 % (11.6-17.2); REVIEW FLAG FINAL; WHITE BLOOD COUNT 5.7 TH/MM3 (4.0-11.0)
[2016-10-06 07:27] LABS: BICARBONATE 25.1 MEQ/L (21.0-32.0); POTASSIUM 4.3 MEQ/L (3.5-5.1)
[2016-10-06] MEDS: ASPIRIN 325 MG TAB PO SCH (09:00)
[2016-10-06] MEDS: SODIUM CHLORIDE 0.9% FLUSH 5 ML FLUSH IV FLUSH SCH ×2 (09:00→21:00)
[2016-10-06] MEDS: ENOXAPARIN SODIUM 40 MG/0.4 ML SYRINGE SQ SCH (09:43)
[2016-10-06] MEDS: CILOSTAZOL 50 MG TAB PO SCH ×2 (09:44→22:11)
[2016-10-06] MEDS: CLOPIDOGREL 75 MG TAB PO SCH (09:44)
[2016-10-06] MEDS: PYRIDOXINE HCL 50 MG TAB PO SCH (09:44)
[2016-10-06] MEDS: SODIUM CHLOR 0.9% 1000 ML INJ 1,000 ML IV SCH (09:48)
--- NOTE | 2016-10-06 10:28 | HHI.FPPN ---
Subjective Remarks Patient seen and examined this morning. No acute events overnight. Denies any complaints/concerns this morning. Patient denies any new neurological symptoms. Denies any confusion or change in speech. Eyes any fever/chills, chest pain, shortness of breath, abdominal pain. (Juan Miguel Mejia MD, R2) Objective Vitals Vital Signs Date Time Temp Pulse Resp B/P (MAP) Pulse Ox O2 Delivery O2 Flow Rate FiO2 10/06/16 10:07 87 10/06/16 07:51 97.0 91 18 163/80 (107) 100 10/06/16 04:30 96.4 89 16 151/73 (99) 99 10/06/16 00:00 98.3 90 16 131/77 (95) 100 10/05/16 20:45 96.2 87 17 121/65 (83) 99 10/05/16 18:05 89 10/05/16 16:00 95.8 75 17 142/78 (99) 100 10/05/16 12:10 100 21 10/05/16 12:00 95.5 79 18 154/72 (99) 100 I/O 10/05/16 10/05/16 10/05/16 10/06/16 10/06/16 10/06/16 07:00 15:00 23:00 07:00 15:00 23:00 Intake Total 0 ml 720 ml 240 ml 480 ml Output Total 300 ml 350 ml Balance -300 ml 720 ml -110 ml 480 ml Intake Oral 0 ml 720 ml 240 ml 480 ml Output Urine Total 300 ml 350 ml # Voids 3 2 # Bowel Movements 0 1 0 1 (Juan Miguel Mejia MD, R2) Result Diagram: 10/06/16 0620 10/06/16 0629 Imaging Last Impressions Head CT 10/04/16 1125 Signed Impressions: Service Date/Time: Tuesday, October 04, 2016 13:33 - CONCLUSION: Cerebral atrophy and chronic ischemic small vessel vasculopathy. Romario Becerra MD Head Magnetic Resonance Angiography 10/04/16 0000 Signed Impressions: Service Date/Time: Tuesday, October 04, 2016 18:23 - CONCLUSION: Normal examination. Dion Petit MD Carotid Artery Ultrasound 10/04/16 0000 Signed Impressions: Service Date/Time: Tuesday, October 04, 2016 15:52 - CONCLUSION: No evidence for hemodynamically significant stenosis. Dion Petit MD Brain MRI 10/04/16 0000 Signed Impressions: Service Date/Time: Tuesday, October 04, 2016 18:23 - CONCLUSION: Chronic atrophic and small vessel ischemic changes without any evidence for acute hemorrhage or mass effect. Dion Petit MD Objective Remarks GEN: normally nourished, in NAD. LUNGS: clear A-P, respiratory effort is normal. CARDIOVASCULAR: RR without murmur or gallop. No significant edema. GI/ABD: soft without masses, without organomegaly. NEURO: No focal deficits. No numbness/tingling. No weakness. SKIN: stage II pressure ulcer 2 cm x 4 cm at the tailbone left of center. HEME/LYMPH: no bruising, petechia or significant adenopathy MUSC: R AKA. PSYCH/MENTAL STATUS: Alert and oriented x 3. (Juan Miguel Mejia MD, R2) A/P Assessment and Plan Mr. Branham is a 76-year-old male with a past medical history of hypertension and diabetes presenting to the ED with transient dyslogia. Likely TIA symptoms, no stroke on MRI. Working up lab results and causes. Discharge Planning Once cleared by neurology and pending workup of TIA symptoms. (Juan Miguel Mejia MD, R2) Attending Attestation Patient seen and examined. Case reviewed and discussed with the resident team. Agree with plan of care as discussed with me and documented in the resident note. (Tay Hastings MD) Problem List: (1) TIA (transient ischemic attack) ICD Codes: G45.9 - Transient cerebral ischemic attack, unspecified Status: Acute Plan: Dyslogia resolved after admission to hospital. Most likely a TIA. CT brain w/o contrast showed cerebral atrophy and chronic ischemic small vessel vasculopathy. Brain MRI: no acute disease Head MRA: normal exam Carotid US: no evidence of stenosis EEG negative for epileptic activity -Neurology consult, appreciate recommendations -Neurologic symptoms have resolved; awaiting workup results -Echo pending, If normal d/c on plavix -RPR 1:16, RPR reactive; DARLINE positive; Recommended consulting ID -No history of syphilis; FTA-abs pending; May have false positive (2) Hypertension ICD Codes: I10 - Essential (primary) hypertension Status: Chronic Plan: Restart home HTN meds -Metoprolol 12.mg daily, lisinopril 5mg HS (3) Sacral decubitus ulcer, stage III ICD Codes: L89.153 - Pressure ulcer of sacral region, stage 3 Plan: Stage III sacral ulcer -Wound care consulted -Recommend cleansing and dressing changes q3 days -Airapy bed or [place] [id number] bed -Continue to monitor (4) Diabetes mellitus ICD Codes: E11.9 - Type 2 diabetes mellitus without complications Status: Chronic Plan: -At-home medications held -Sliding scale insulin -Regular blood glucose checks (5) Hyperlipemia ICD Codes: E78.5 - Hyperlipidemia, unspecified Status: Chronic Plan: Continue at home Cilostazol 50mg po Atorvastatin 40 mg by mouth at bedtime (6) FEN Status: Acute Plan: Fluids: PO Electrolytes: Monitor and replace as needed Nutrition: Diabetic diet DVT prophylaxis: Enoxaparin Tylenol as needed for pain (Juan Miguel Mejia MD, R2) Problem Qualifiers (1) TIA (transient ischemic attack): Qualified Codes: G45.9 - Transient cerebral ischemic attack, unspecified (2) Hypertension: Qualified Codes: I10 - Essential (primary) hypertension (3) Diabetes mellitus: (4) Hyperlipemia: Qualified Codes: E78.5 - Hyperlipidemia, unspecified Juan Miguel Mejia MD, R2 Oct 06, 2016 10:28 Tay Hastings MD Oct 06, 2016 10:35
[2016-10-06] MEDS ORDERED: PILL SPLITTER OTHER PRN (10:45)
[2016-10-06] MEDS: METOPROLOL SUCCINATE 25 MG EXTENDED RELEASE TAB PO SCH (11:31)
--- NOTE | 2016-10-06 14:26 | HM ---
Date Performed: 10/04/2016 Time Performed: 21:57:00 HOOKUP DATE: 10/04/16 09:57:00 PM Sun ANALYSIS START TIME: 10/04/2016 10:02:00 PM ANALYSIS END TIME: 10/05/2016 8:51:49 PM PATIENT AGE: 76 PATIENT HEIGHT PATIENT WEIGHT: 158 DRUG LIST: ROOM 1608 PATIENT DIAGNOSIS: TIA TEST NARRATIVE: The patient's average heart rate was 82 BPM. No episodes of tachycardia wer e noted. No episodes of bradycardia were noted. No pauses exceeding 2.0 seconds were noted. 3351 ventricular ectopics, which represented 4% of the total beat count, were noted. The highest portillo tricular ectopic frequency occurred from 10:00 AM to 11:00 AM Mon. During this time 252 VE(s) occurr ed. Ventricular ectopics were observed as 3228 isolated beat(s), as 59 couplet(s) and as 1 run(s). Some of the ventricular beats occurred in bigeminal cycles. No supraventricular ectopics were not ed. Multiple episodes of ST depression (defined as -1.0 mm or more) were noted in channel 1. Th e maximum depression of -2.9 mm occurred at 07:29:45 PM Mon. Multiple episodes of ST depression (def ined as -1.0 mm or more) were noted in channel 2. The maximum depression of -1.6 mm occurred at 07: 44:28 PM Mon. No episodes of ST depression (defined as -1.0 mm or more) were noted in channel 3. NO DIARY ENTRIES TEST INTERPRETATION: The patient undergoes a Holter monitor to see if there is any relationship of his neuro symptoms with an underlying rhythm disturbance. Only the expanded tracings are subject t o interpretation. No diary entries are made. The expanded tracings show Sinus rhythm throughout the monitoring session. There are occasional PVCs with fairly frequent couplets. There is one episode of 3 consecutive PVCs, technically meeting criteria for nonsustained ventricular tachyca rdia. No supraventricular arrhythmias are noted. No bradycardia is noted. CONCLUSIONS: 1. Normal sinu s rhythm, without evidence of abnormal supraventriucular tachycardia. 2. No significant Napoleon arrhyth mias are noted. 3. PVCs and couplets with one 3 beat episode of nonsustained ventricular tachycardia. 4. No other Napoleon or tachy arrhthmias are noted. 5. No diary entries were made so it is unknown as t o whether the patient is symptomatic. Signed by : Deborah Castaeñda
[2016-10-06 17:09] LABS: HEMOGLOBIN A1a 1.1 %; HEMOGLOBIN A1b 1.2 %; HEMOGLOBIN Ao 78.9 %; HEMOGLOBIN F 1.6 %; HEMOGLOBIN LA1C 1.7 %; HEMOGLOBIN P3 4.8 %
--- NOTE | 2016-10-06 17:28 | PD.ID.CON ---
History of Present Illness Service ID Consult Requested By Dr Malcolm Reason for Consult + RPR, Primary Care Physician Mike Short MD Diagnoses: History of Present Illness 72 yo male witht mult med problems admitted with slurred speach and confusion which resolved subsequntly He was diagnsode with TIA (transient ischemic attack) His w/u revealed: . CT brain w/o contrast showed cerebral atrophy and chronic ischemic small vessel vasculopathy. negative Brain MRI and normal head MRA: normal carotid US, negative EEG for epileptic activity He has negativ 2 D Echo DARLINE positive;titers P His RPR, RPR reactive;titers 1:16 FTA-abs pending; Pt was treted for syphilis in 1960s in . Per pt diagnosis of syphilis was establishe by screening blood test. 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 Ordered Medications Medications where reviewed in EMR Antibiotics Include: none Family History Mother- DM, at 91 Father- healthy, at 75 Siblings- all passed Children- healthy Social History has 2 children lives with and son in a house in [place] Employment- retired, worked for the [employer] Alcohol- does not drink Cigarettes- quit 6 months ago, 1 ppd for 50 yrs Drug use- none Physical Exam Vital Signs Vital Signs Date Time Temp Pulse Resp B/P (MAP) Pulse Ox O2 Delivery O2 Flow Rate FiO2 10/06/16 16:00 97.3 91 18 127/63 (84) 100 10/06/16 11:59 97.3 90 18 136/65 (88) 98 10/06/16 10:55 99 21 10/06/16 10:07 87 10/06/16 07:51 97.0 91 18 163/80 (107) 100 10/06/16 04:30 96.4 89 16 151/73 (99) 99 10/06/16 00:00 98.3 90 16 131/77 (95) 100 10/05/16 20:45 96.2 87 17 121/65 (83) 99 10/05/16 18:05 89 Physical Exam CONSTITUTIONAL/GENERAL: This is an adequately nourished patient, in no apparent distress. TUBES/LINES/DRAINS: SKIN: No jaundice, rashes, or lesions. Skin temperature appropriate. Not diaphoretic. HEAD: Atraumatic. Normocephalic. EYES: Pupils equal and round and reactive. Extraocular motions intact. No scleral icterus. No injection or drainage. Fundi not examined. ENT: Hearing grossly normal. Nose without bleeding or purulent drainage. Throat without visible erythema, exudates, masses, or lesions. Edentulous NECK: Trachea midline. Supple, nontender. CARDIOVASCULAR: Regular rate and rhythm without murmurs, gallops, or rubs. Artificial valve sounds No JVD. Peripheral pulses symmetric. Medial sternotomy - well healed RESPIRATORY/CHEST: Symmetric, unlabored respirations. Clear to auscultation. Breath sounds equal bilaterally. No wheezes, rales, or rhonchi. GASTROINTESTINAL: Abdomen soft, non-tender, nondistended. No hepato-splenomegaly , or palpable masses. No guarding. Bowel sounds present. MUSCULOSKELETAL: Extremities without clubbing, cyanosis, or edema. No joint tenderness or effusion noted. No calf tenderness. No mottling or clubbing. Sp R AKA - well healed LYMPHATICS: No palpable cervical or supraclavicular adenopathy. NEUROLOGICAL: Awake and alert. Motor and sensory grossly within normal limits. Follows commands. Speech is slow, but answers questions correctly. Moves all extremities. PSYCHIATRIC: No obvious anxiety/depression. no apparent hallucinations or other psychotic thought process. Laboratory Laboratory Tests Test 10/05/16 19:10 10/06/16 06:20 10/06/16 06:29 Complement C3 131 Complement C4 44 HIV (1&2) Antibody NEGATIVE White Blood Count 5.7 Red Blood Count 3.82 Hemoglobin 11.5 Hematocrit 34.2 Mean Corpuscular Volume 89.7 Mean Corpuscular Hemoglobin 30.1 Mean Corpuscular Hemoglobin Concent 33.6 Red Cell Distribution Width 13.6 Platelet Count 202 Mean Platelet Volume 8.2 Blood Urea Nitrogen 23 Creatinine 1.47 Random Glucose 200 Calcium Level 8.5 Sodium Level 143 Potassium Level 4.3 Chloride Level 107 Carbon Dioxide Level 25.1 Anion Gap 11 Estimat Glomerular Filtration Rate 57 Result Diagram: 10/06/16 0620 10/06/16 06 Imaging Last Impressions Chest X-Ray 10/05/16 0000 Signed Impressions: Service Date/Time: Wednesday, October 05, 2016 09:46 - CONCLUSION: 1. No acute cardiopulmonary disease. Nitesh Ricks MD Head CT 10/04/16 1125 Signed Impressions: Service Date/Time: Tuesday, October 04, 2016 13:33 - CONCLUSION: Cerebral atrophy and chronic ischemic small vessel vasculopathy. Romario Becerra MD Head Magnetic Resonance Angiography 10/04/16 0000 Signed Impressions: Service Date/Time: Tuesday, October 04, 2016 18:23 - CONCLUSION: Normal examination. Dion Petit MD Carotid Artery Ultrasound 10/04/16 0000 Signed Impressions: Service Date/Time: Tuesday, October 04, 2016 15:52 - CONCLUSION: No evidence for hemodynamically significant stenosis. Dion Petit MD Brain MRI 10/04/16 0000 Signed Impressions: Service Date/Time: Tuesday, October 04, 2016 18:23 - CONCLUSION: Chronic atrophic and small vessel ischemic changes without any evidence for acute hemorrhage or mass effect. 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
--- NOTE | 2016-10-06 17:58 | ECHRPT ---
Indication: cva/tia CONCLUSIONS The left ventricular systolic function is low normal with an estimated ejection fraction in the rang e of 50- 55%. Normal left ventricular size. There is assymetric septal hypertrophy. The left atrial size is upper limits of normal. mild mr MVA p 1/2t 1.98 cm2 There is mild tricuspid valve regurgitation. The estimated pulmonary arterial pressure is _33_ mmHg. The pulmonary valve is not well visualized. BP: / HR: Rhythm: MEASUREMENTS (Male / Female) Normal Values Technical Quality:Good 2D ECHO LV Diastolic Diameter PLAX 3.8 cm 4.2 - 5.9 / 3.9 - 5.3 cm LV Systolic Diameter PLAX 3.3 cm IVS Diastolic Thickness 1.5 cm 0.6 - 1.0 / 0.6 - 0.9 cm LVPW Diastolic Thickness 0.9 cm 0.6 - 1.0 / 0.6 - 0.9 cm LV Relative Wall Thickness 0.6 RV Internal Dim ED PLAX 2.5 cm LVOT Diameter 1.8 cm M-MODE Aortic Root Diameter MM 3.3 cm LA Systolic Diameter MM 3.9 cm LA Ao Ratio MM 1.2 AV Cusp Separation MM 1.1 cm DOPPLER AV Peak Velocity 187.0 cm/s AV Peak Gradient 14.0 mmHg AV Mean Gradient 5.0 mmHg AV Velocity Time Integral 26.1 cm LVOT Peak Velocity 80.5 cm/s LVOT Peak Gradient 2.6 mmHg LVOT Velocity Time Integral 12.2 cm AV Area Cont Eq vti 1.2 cm AV Area Cont Eq pk 1.1 cm MV Area PHT 2.0 cm Mitral E Point Velocity 73.5 cm/s Mitral A Point Velocity 116.0 cm/s Mitral E to A Ratio 0.6 TR Peak Velocity 238.0 cm/s TR Peak Gradient 22.7 mmHg FINDINGS LEFT VENTRICLE The left ventricular systolic function is low normal with an estimated ejection fraction in the rang e of 50- 55%. Normal left ventricular size. There is assymetric septal hypertrophy. RIGHT VENTRICLE Normal right ventricular size and systolic function. LEFT ATRIUM The left atrial size is upper limits of normal. RIGHT ATRIUM The right atrial size is normal. ATRIAL SEPTUM Normal atrial septal thickness without atrial level shunting by limited color doppler interrogation. AORTA The aortic root and proximal ascending aorta are normal in size on limited imaging. MITRAL VALVE mild mr MVA p 1/2t 1.98 cm2 AORTIC VALVE Trileaflet aortic valve. No aortic valve stenosis or regurgitation. TRICUSPID VALVE Structurally normal tricuspid valve. There is mild tricuspid valve regurgitation. The estimated pulmonary arterial pressure is _33_ mmHg. PULMONARY VALVE The pulmonary valve is not well visualized. VESSELS The inferior vena cava is normal in size. PERICARDIUM No pericardial effusion. Mary Brown MD, FACC (Electronically Signed) Final Date:06 October 2016 17:57
[2016-10-06] MEDS: INSULIN DETEMIR 100 UNITS/ML VIAL SQ SCH (21:00)
[2016-10-06] MEDS: ATORVASTATIN 80 MG TAB PO SCH (22:11)
[2016-10-07] VITALS (9 sets, daily range): BP systolic 64–173; BP diastolic 44–86; PULSE 82–99; RESP 16–18; TEMP 96.2–98.2; O2SAT 96–100
[2016-10-07] MEDS: SODIUM CHLOR 0.9% 1000 ML INJ 1,000 ML IV SCH ×2 (01:02→14:43)
[2016-10-07] MEDS: INSULIN ASPART SUPPLEMENTAL SCALE SQ SCH ×4 (06:47→21:57)
--- NOTE | 2016-10-07 06:53 | HHI.PR ---
Subjective Remarks sr holter neg x 3 beat vt Objective Vital Signs Date Time Temp Pulse Resp B/P (MAP) Pulse Ox O2 Delivery O2 Flow Rate FiO2 10/07/16 04:30 98.2 96 18 173/78 (109) 96 10/07/16 00:35 97.0 91 17 144/73 (96) 97 10/06/16 21:15 97.6 89 18 175/90 (118) 99 10/06/16 16:00 97.3 91 18 127/63 (84) 100 10/06/16 11:59 97.3 90 18 136/65 (88) 98 10/06/16 10:55 99 21 10/06/16 10:07 87 10/06/16 07:51 97.0 91 18 163/80 (107) 100 I/O 10/06/16 10/06/16 10/06/16 10/07/16 10/07/16 10/07/16 07:00 15:00 23:00 07:00 15:00 23:00 Intake Total 480 ml 1565 ml 240 ml Balance 480 ml 1565 ml 240 ml Intake Oral 480 ml 600 ml 240 ml IV Total 965 ml # Voids 2 3 1 # Bowel Movements 1 2 0 Result Diagram: 10/06/16 0620 10/06/16 0629 Objective Remarks vff face sym 5/5 t/o speech clear and nl now Assessment and Plan Assessment and Plan imp mri /a us neg esr 41 check crp ok inc ldl ? inc statin dose? eeg neg echo neg holter neg x 3 beat VT his rpr pos check fta pend id consulted i defer to them if they want LP jose pos titer pend still neurowise doing fine and ok dc when cleared by id on plavix Salvatore Browning MD Oct 07, 2016 06:53
[2016-10-07 08:12] LABS: HEMATOCRIT 37.2 % (39.0-51.0); MEAN CELL VOLUME 91.2 FL (80.0-100.0); MEAN CORPUSCULAR HEMOGLOBIN 29.3 PG (27.0-34.0); MEAN CORPUSCULAR HGB CONC 32.1 % (32.0-36.0); PLATELET COUNT 247 TH/MM3 (150-450); RED BLOOD COUNT 4.08 MIL/MM3 (4.50-5.90); RED CELL DISTRIBUTION WIDTH 13.9 % (11.6-17.2); REVIEW FLAG FINAL; WHITE BLOOD COUNT 5.3 TH/MM3 (4.0-11.0)
[2016-10-07 08:38] LABS: BICARBONATE 24.7 MEQ/L (21.0-32.0)
[2016-10-07] MEDS: ENOXAPARIN SODIUM 40 MG/0.4 ML SYRINGE SQ SCH (08:56)
[2016-10-07] MEDS: PYRIDOXINE HCL 50 MG TAB PO SCH (08:56)
[2016-10-07] MEDS: CILOSTAZOL 50 MG TAB PO SCH ×2 (08:56→21:52)
[2016-10-07] MEDS: CLOPIDOGREL 75 MG TAB PO SCH (08:56)
[2016-10-07] MEDS: METOPROLOL SUCCINATE 25 MG EXTENDED RELEASE TAB PO SCH (08:56)
[2016-10-07] MEDS: LISINOPRIL 5 MG TAB PO SCH (08:56)
[2016-10-07] MEDS: SODIUM CHLORIDE 0.9% FLUSH 5 ML FLUSH IV FLUSH SCH ×2 (08:57→21:51)
[2016-10-07] MEDS ORDERED: INSULIN ASPART 1,000 UNITS/10 ML VIAL SQ STA (09:13)
--- NOTE | 2016-10-07 14:57 | HHI.FPPN ---
Subjective Remarks Mr. Branham states that he is doing well this morning. Is having no periods of confusion, no aphasia, no chest pain, no shortness of breath, no nausea/ vomiting, no abdominal pain. He states that he feels he is still having loose stools. His blood sugars are also running high. His son requests for us to call him. His son refused his Levemir last night. Spoke to son on the phone this afternoon: Is concerned about our sliding scale insulin protocols and his father getting dairy products at meals. He states that his father gets 4 units of Levemir at night and sliding scale NovoLog before meals during the day. His morning blood glucose is usually in the 90s to 150s. Sometimes in the 200 range. His blood sugars before meals can be in the 200s to 300s. (Myranda Ayon MD R1) Objective Vitals Vital Signs Date Time Temp Pulse Resp B/P (MAP) Pulse Ox O2 Delivery O2 Flow Rate FiO2 10/07/16 12:15 105/55 (72) 10/07/16 12:00 96.2 99 18 64/44 (51) 99 10/07/16 10:07 95 10/07/16 08:00 96.4 90 18 154/76 (102) 99 10/07/16 04:30 98.2 96 18 173/78 (109) 96 10/07/16 00:35 97.0 91 17 144/73 (96) 97 10/06/16 21:15 97.6 89 18 175/90 (118) 99 10/06/16 16:00 97.3 91 18 127/63 (84) 100 I/O 10/06/16 10/06/16 10/06/16 10/07/16 10/07/16 10/07/16 07:00 15:00 23:00 07:00 15:00 23:00 Intake Total 480 ml 1565 ml 240 ml 240 ml Output Total 750 ml Balance 480 ml 1565 ml 240 ml -510 ml Intake Oral 480 ml 600 ml 240 ml 240 ml IV Total 965 ml Output Urine Total 750 ml # Voids 2 3 1 # Bowel Movements 1 2 0 0 (Myranda Ayon MD R1) Result Diagram: 10/07/16 0739 10/07/16 0739 Objective Remarks GEN: normally nourished, in NAD. LUNGS: clear A-P, respiratory effort is normal. CARDIOVASCULAR: RR without murmur or gallop. No significant edema. GI/ABD: soft without masses, without organomegaly. NEURO: No focal deficits. No numbness/tingling. No weakness. SKIN: stage II pressure ulcer 2 cm x 4 cm at the tailbone left of center. HEME/LYMPH: no bruising, petechia or significant adenopathy MUSC: R AKA. PSYCH/MENTAL STATUS: Alert and oriented x 3. (Myranda Ayon MD R1) A/P Assessment and Plan Mr. Branham is a 76-year-old male with a past medical history of hypertension and diabetes presenting to the ED with transient dyslogia. Likely TIA symptoms, no stroke on MRI. Working up lab results and causes. Discharge Planning Once cleared by neurology and pending workup of TIA symptoms. (Myranda Ayon MD R1) Attending Attestation Patient seen and examined. Case reviewed and discussed with the resident team. Agree with plan of care as discussed with me and documented in the resident note. (Tay Hastings MD) Problem List: (1) TIA (transient ischemic attack) ICD Codes: G45.9 - Transient cerebral ischemic attack, unspecified Status: Acute Plan: Dyslogia resolved after admission to hospital. Most likely a TIA. CT brain w/o contrast showed cerebral atrophy and chronic ischemic small vessel vasculopathy. Brain MRI: no acute disease Head MRA: normal exam Carotid US: no evidence of stenosis EEG negative for epileptic activity -Neurology consult, appreciate recommendations -Neurologic symptoms have resolved; awaiting workup results -Echo normal d/c on plavix -RPR 1:16, RPR reactive; DARLINE positive; Recommended consulting ID -No history of syphilis; FTA-abs pending; May have false positive -DC when cleared by ID -ID consult, appreciate recommendations * Patient states that he had a history of syphilis when he was in the in the 1970s. Successfully treated with penicillin. * if FTA test comes back positive will consider LP (2) Hypertension ICD Codes: I10 - Essential (primary) hypertension Status: Chronic Plan: Restart home HTN meds -Metoprolol 12.mg daily, lisinopril 5mg HS (3) Sacral decubitus ulcer, stage III ICD Codes: L89.153 - Pressure ulcer of sacral region, stage 3 Plan: Stage III sacral ulcer -Wound care consulted -Recommend cleansing and dressing changes q3 days -Airapy bed or [place] [id number] bed -Continue to monitor (4) Diabetes mellitus ICD Codes: E11.9 - Type 2 diabetes mellitus without complications Status: Chronic Plan: Hemoglobin A1c is 9.9. Uncontrolled diabetes. -At-home medications held -Sliding scale insulin -Levemir 5 units at bedtime -Regular blood glucose checks (5) Hyperlipemia ICD Codes: E78.5 - Hyperlipidemia, unspecified Status: Chronic Plan: Continue at home Cilostazol 50mg po Atorvastatin 40 mg by mouth at bedtime (6) FEN Status: Acute Plan: Fluids: PO Electrolytes: Monitor and replace as needed Nutrition: Diabetic diet DVT prophylaxis: Enoxaparin Tylenol as needed for pain (Myranda Ayon MD R1) Problem Qualifiers (1) TIA (transient ischemic attack): Qualified Codes: G45.9 - Transient cerebral ischemic attack, unspecified (2) Hypertension: Qualified Codes: I10 - Essential (primary) hypertension (3) Diabetes mellitus: (4) Hyperlipemia: Qualified Codes: E78.5 - Hyperlipidemia, unspecified Myranda Ayon MD R1 Oct 07, 2016 14:57 Tay Hastings MD Oct 08, 2016 08:30
[2016-10-07] MEDS ORDERED: INSULIN DETEMIR 100 UNITS/ML VIAL SQ SCH (21:00)
[2016-10-07] MEDS: ATORVASTATIN 80 MG TAB PO SCH (21:52)
[2016-10-08 00:35] VITALS: BP 118/71; PULSE 96; RESP 16; TEMP 97.8; O2SAT 100
[2016-10-08] MEDS: SODIUM CHLOR 0.9% 1000 ML INJ 1,000 ML IV SCH (03:36)
[2016-10-08 03:45] LABS: C. DIFF EPI 027 PRESUMPTIVE NEGATIVE (NEGATIVE)
[2016-10-08 04:30] VITALS: BP 136/67; PULSE 86; RESP 18; TEMP 97.4; O2SAT 100
[2016-10-08] MEDS: INSULIN ASPART SUPPLEMENTAL SCALE SQ SCH ×3 (06:52→16:40)
[2016-10-08 07:22] LABS: HEMATOCRIT 33.5 % (39.0-51.0); MEAN CELL VOLUME 89.7 FL (80.0-100.0); MEAN CORPUSCULAR HEMOGLOBIN 29.6 PG (27.0-34.0); MEAN CORPUSCULAR HGB CONC 33.1 % (32.0-36.0); PLATELET COUNT 245 TH/MM3 (150-450); RED BLOOD COUNT 3.73 MIL/MM3 (4.50-5.90); RED CELL DISTRIBUTION WIDTH 13.6 % (11.6-17.2); REVIEW FLAG FINAL; WHITE BLOOD COUNT 6.1 TH/MM3 (4.0-11.0)
[2016-10-08 07:59] LABS: BICARBONATE 24.6 MEQ/L (21.0-32.0); POTASSIUM 3.9 MEQ/L (3.5-5.1)
[2016-10-08 08:00] VITALS: BP 142/78; PULSE 75; RESP 18; TEMP 96.4; O2SAT 100
[2016-10-08] MEDS ORDERED: metroNIDAZOLE 500 MG TAB PO SCH ×2 (08:00→14:00)
[2016-10-08] MEDS: LISINOPRIL 5 MG TAB PO SCH (10:20)
[2016-10-08] MEDS: METOPROLOL SUCCINATE 25 MG EXTENDED RELEASE TAB PO SCH (10:21)
[2016-10-08] MEDS: PYRIDOXINE HCL 50 MG TAB PO SCH (10:22)
[2016-10-08] MEDS: CLOPIDOGREL 75 MG TAB PO SCH (10:22)
[2016-10-08] MEDS: ENOXAPARIN SODIUM 40 MG/0.4 ML SYRINGE SQ SCH (10:23)
[2016-10-08] MEDS: CILOSTAZOL 50 MG TAB PO SCH (10:27)
[2016-10-08] MEDS: SODIUM CHLORIDE 0.9% FLUSH 5 ML FLUSH IV FLUSH SCH (10:28)
[2016-10-08 12:00] VITALS: BP 133/69; PULSE 85; RESP 19; TEMP 96.9; O2SAT 99
[2016-10-08 16:00] VITALS: BP 126/66; PULSE 86; RESP 17; TEMP 96.6; O2SAT 100
[2016-10-08] MEDS ORDERED: METR-1 PO (16:20)
[2016-10-08] MEDS ORDERED: LEVEMIR SQ (16:20)
[2016-10-08] MEDS ORDERED: PLAV75TA29 PO (16:20)
--- NOTE | 2016-10-08 16:20 | HHI.DCPOC ---
Discharge Care Plan Diagnosis: (1) TIA (transient ischemic attack) (2) Diabetes mellitus (3) Hypertension (4) CAD (coronary artery disease) (5) Hyperlipemia (6) Sacral decubitus ulcer, stage III Goals to Promote Your Health * To prevent worsening of your condition and complications * To maintain your health at the optimal level Directions to Meet Your Goals Take your medications as prescribed Follow your dietary instruction Follow activity as directed Keep your appointments as scheduled Take your immunizations and boosters as scheduled If your symptoms worsen call your PCP, if no PCP go to Urgent Care Center or Emergency Room Smoking is Dangerous to Your Health. Avoid second hand smoke Call the 24-hour hour crisis hotline for domestic abuse at Juan Miguel Mejia MD, R2 Oct 08, 2016 16:20
[2016-10-08] MEDS ORDERED: ATOR1TAB18 PO (16:24)
--- NOTE | 2016-10-08 16:44 | HHI.PR ---
Addendum to Inpatient Note Additional Information pt developped diarrhea, confimed C.diff FTA abs still P Plan: fu FTA-S needs fu with [facility] if + FTA-abs and LP (if agrees) Tx will depend on LP results (neurosyphilus vs late latent) cont flagyl x 2 weeks Katie Myers MD Oct 08, 2016 16:44
--- NOTE | 2016-10-08 17:24 | HHI.FPPN ---
Subjective Remarks Patient seen and examined this morning. Denies any complaints. States he still having diarrhea stools. He feels ready to go home. Denies any confusion or neurological deficits. No chest pain, shortness of breath, abdominal pain, leg pain. (Juan Miguel Mejia MD, R2) Objective Vitals Vital Signs Date Time Temp Pulse Resp B/P (MAP) Pulse Ox O2 Delivery O2 Flow Rate FiO2 10/08/16 16:00 96.6 86 17 126/66 (86) 100 10/08/16 12:00 96.9 85 19 133/69 (90) 99 10/08/16 08:00 96.4 75 18 142/78 (99) 100 10/08/16 04:30 97.4 86 18 136/67 (90) 100 10/08/16 01:38 Room Air 10/08/16 00:35 97.8 96 16 118/71 (87) 100 10/07/16 20:30 97 10/07/16 20:00 97.2 98 16 159/86 (110) 96 I/O 10/07/16 10/07/16 10/07/16 10/08/16 10/08/16 10/08/16 07:00 15:00 23:00 07:00 15:00 23:00 Intake Total 240 ml 600 ml 815 ml 120 ml Output Total 750 ml 350 ml 800 ml Balance -510 ml 600 ml 465 ml -680 ml Intake Oral 240 ml 600 ml 240 ml 120 ml IV Total 575 ml Output Urine Total 750 ml 350 ml 800 ml # Voids 3 # Bowel Movements 0 0 1 0 (Juan Miguel Mejia MD, R2) Result Diagram: 10/08/16 0540 10/08/16 0540 Objective Remarks GEN: normally nourished, in NAD. LUNGS: clear A-P, respiratory effort is normal. CARDIOVASCULAR: RR without murmur or gallop. No significant edema. GI/ABD: soft without masses, without organomegaly. NEURO: No focal deficits. No numbness/tingling. No weakness. SKIN: stage III pressure ulcer 2 cm x 4 cm at the tailbone left of center. HEME/LYMPH: no bruising, petechia or significant adenopathy MUSC: R AKA. PSYCH/MENTAL STATUS: Alert and oriented x 3. (Juan Miguel Mejia MD, R2) A/P Assessment and Plan Mr. Branham is a 76-year-old male with a past medical history of hypertension and diabetes presenting to the ED with transient dyslogia. Likely TIA symptoms, no stroke on MRI. Working up lab results and causes. Discharge Planning Awaiting results of syphilis test, however patient refusing LP, cleared to go with follow-up with ID or [facility]. (Juan Miguel Mejia MD, R2) Attending Attestation Patient seen and examined this afternoon. Case reviewed and discussed with the resident team Agree with plan of care as discussed with me and documented in the resident note. Appreciate ID and neuro input Patient states he does not want to undergo LP He would like to go home Counseled on risks, benefits Patient stated his understanding (Gayle Younger MD) Problem List: (1) TIA (transient ischemic attack) ICD Codes: G45.9 - Transient cerebral ischemic attack, unspecified Status: Acute Plan: Dyslogia resolved after admission to hospital. Most likely a TIA. CT brain w/o contrast showed cerebral atrophy and chronic ischemic small vessel vasculopathy. Brain MRI: no acute disease Head MRA: normal exam Carotid US: no evidence of stenosis EEG negative for epileptic activity -Neurology consult, appreciate recommendations -Neurologic symptoms have resolved; awaiting workup results -Echo normal d/c on plavix -RPR 1:16, RPR reactive; DARLINE positive; Recommended consulting ID -No history of syphilis; FTA-abs pending; May have false positive -Son requests to take care of pt at home by self, instead of PT/OT. -ID consult, appreciate recommendations. Unclear if neurosyphilis clinically. * Patient states that he had a history of syphilis when he was in the in the 1970s. Successfully treated with penicillin. * if FTA test comes back positive will consider LP * Pt is refusing LP. Discussed with ID, who recommends follow-up outpatient with [facility] for treatment if positive. (2) Hypertension ICD Codes: I10 - Essential (primary) hypertension Status: Chronic Plan: Restart home HTN meds -Metoprolol 12.mg daily, lisinopril 5mg HS (3) Sacral decubitus ulcer, stage III ICD Codes: L89.153 - Pressure ulcer of sacral region, stage 3 Plan: Stage III sacral ulcer -Wound care consulted -Recommend cleansing and dressing changes q3 days -Airapy bed or [place] [id number] bed -Continue to monitor (4) Diabetes mellitus ICD Codes: E11.9 - Type 2 diabetes mellitus without complications Status: Chronic Plan: Hemoglobin A1c is 9.9. Uncontrolled diabetes. -At-home medications held -Sliding scale insulin -Send home with Levemir 5 units BID. -Check BS at home (5) Hyperlipemia ICD Codes: E78.5 - Hyperlipidemia, unspecified Status: Chronic Plan: Continue at home Cilostazol 50mg po Atorvastatin 40 mg by mouth at bedtime (6) FEN Status: Acute Plan: Fluids: PO Electrolytes: Monitor and replace as needed Nutrition: Diabetic diet DVT prophylaxis: Enoxaparin Tylenol as needed for pain (Juan Miguel Mejia MD, R2) Problem Qualifiers (1) TIA (transient ischemic attack): Qualified Codes: G45.9 - Transient cerebral ischemic attack, unspecified (2) Hypertension: Qualified Codes: I10 - Essential (primary) hypertension (3) Diabetes mellitus: (4) Hyperlipemia: Qualified Codes: E78.5 - Hyperlipidemia, unspecified Juan Miguel Mejia MD, R2 Oct 08, 2016 17:24 Gayle Younger MD Oct 08, 2016 21:34
[2016-10-09 13:53] LABS: BETA2 GLYCOPROTEIN I AB IGA LESS THAN 9.0 SAU (< OR = 20)
--- NOTE | 2016-10-09 14:04 | HHI.DS ---
Discharge Summary Admission Date Oct 04, 2016 at 15:50 Discharge Date: Oct 08, 2016 Admitting Diagnosis TIA (1) TIA (transient ischemic attack) Diagnosis: Principal Plan: Dyslogia resolved after admission to hospital. Most likely a TIA. CT brain w/o contrast showed cerebral atrophy and chronic ischemic small vessel vasculopathy. Brain MRI: no acute disease Head MRA: normal exam Carotid US: no evidence of stenosis EEG negative for epileptic activity -Neurology consult, appreciate recommendations -Neurologic symptoms have resolved; awaiting workup results -Echo normal d/c on plavix -RPR 1:16, RPR reactive; DARLINE positive; Recommended consulting ID -No history of syphilis; FTA-abs pending; May have false positive -Son requests to take care of pt at home by self, instead of PT/OT. -ID consult, appreciate recommendations. Unclear if neurosyphilis clinically. * Patient states that he had a history of syphilis when he was in the in the 1970s. Successfully treated with penicillin. * if FTA test comes back positive will consider LP * Pt is refusing LP. Discussed with ID, who recommends follow-up outpatient with [facility] for treatment if positive. ICD Codes: G45.9 - Transient cerebral ischemic attack, unspecified Status: Acute (2) Hypertension Plan: Restart home HTN meds -Metoprolol 12.mg daily, lisinopril 5mg HS ICD Codes: I10 - Essential (primary) hypertension Status: Chronic (3) Sacral decubitus ulcer, stage III Plan: Stage III sacral ulcer -Wound care consulted -Recommend cleansing and dressing changes q3 days -Airapy bed or [place] [id number] bed -Continue to monitor ICD Codes: L89.153 - Pressure ulcer of sacral region, stage 3 (4) Diabetes mellitus Plan: Hemoglobin A1c is 9.9. Uncontrolled diabetes. -At-home medications held -Sliding scale insulin -Send home with Levemir 5 units BID. -Check BS at home ICD Codes: E11.9 - Type 2 diabetes mellitus without complications Status: Chronic (5) Hyperlipemia Plan: Continue at home Cilostazol 50mg po Atorvastatin 40 mg by mouth at bedtime ICD Codes: E78.5 - Hyperlipidemia, unspecified Status: Chronic (6) FEN Plan: Fluids: PO Electrolytes: Monitor and replace as needed Nutrition: Diabetic diet DVT prophylaxis: Enoxaparin Tylenol as needed for pain Status: Acute Brief History Patient is a 76-year-old male with a past medical history of hypertension and diabetes presenting to the ED with transient altered mental status. Patient states that he woke this morning not able to talk correctly and answer questions. He felt something wasn't right. His son subsequently drove him to the hospital where his symptoms resolved. He states that he has been compliant with his medications at home. He says that he has been having slight headaches, no dizziness, no numbness, but tingling in the tips of his fingers for a while. He felt weak muscle weakness nor had facial droop this morning. He has not experienced anything like this before. No prior strokes. CBC/BMP: 10/08/16 0540 10/08/16 0540 Significant Findings Laboratory Tests Test 10/07/16 07:39 10/07/16 16:15 10/08/16 05:40 Red Blood Count 4.08 MIL/MM3 (4.50-5.90) 3.73 MIL/MM3 (4.50-5.90) Hemoglobin 11.9 GM/DL (13.0-17.0) 11.1 GM/DL (13.0-17.0) Hematocrit 37.2 % (39.0-51.0) 33.5 % (39.0-51.0) Blood Urea Nitrogen 22 MG/DL (7-18) 26 MG/DL (7-18) Creatinine 1.40 MG/DL (0.60-1.30) Random Glucose 440 MG/DL (74-106) 316 MG/DL (74-106) Estimat Glomerular Filtration Rate 60 ML/MIN (>89) 67 ML/MIN (>89) Stool C. difficile Toxin (PCR) POSITIVE (NEGATIVE) Imaging Last Impressions Chest X-Ray 10/05/16 0000 Signed Impressions: Service Date/Time: Wednesday, October 05, 2016 09:46 - CONCLUSION: 1. No acute cardiopulmonary disease. Nitesh Ricks MD Head CT 10/04/16 1125 Signed Impressions: Service Date/Time: Tuesday, October 04, 2016 13:33 - CONCLUSION: Cerebral atrophy and chronic ischemic small vessel vasculopathy. Romario Becerra MD Head Magnetic Resonance Angiography 10/04/16 0000 Signed Impressions: Service Date/Time: Tuesday, October 04, 2016 18:23 - CONCLUSION: Normal examination. Dion Petit MD Carotid Artery Ultrasound 10/04/16 0000 Signed Impressions: Service Date/Time: Tuesday, October 04, 2016 15:52 - CONCLUSION: No evidence for hemodynamically significant stenosis. Dion Petit MD Brain MRI 10/04/16 0000 Signed Impressions: Service Date/Time: Tuesday, October 04, 2016 18:23 - CONCLUSION: Chronic atrophic and small vessel ischemic changes without any evidence for acute hemorrhage or mass effect. Dion Petit MD PE at Discharge GEN: normally nourished, in NAD. LUNGS: clear A-P, respiratory effort is normal. CARDIOVASCULAR: RR without murmur or gallop. No significant edema. GI/ABD: soft without masses, without organomegaly. NEURO: No focal deficits. No numbness/tingling. No weakness. SKIN: stage III pressure ulcer 2 cm x 4 cm at the tailbone left of center. HEME/LYMPH: no bruising, petechia or significant adenopathy MUSC: R AKA. PSYCH/MENTAL STATUS: Alert and oriented x 3. Hospital Course Mr. Branham is a 76-year-old male with a past medical history of [id number] amputation, diabetes, high blood pressure or hypertension who presented to the ED with transient confusion. He was admitted on 10/04/16 and diagnosed with a TIA. Neurology was consulted. No carotid stenosis was found on ultrasound. Brain CT showed chronic atrophy. Further laboratory testing was done including RPR, which was positive. Patient did admit to having syphilis in the 1970s. However, patient is not exhibiting any symptoms of neurosyphilis. Patient also complained of diarrhea upon admission. Stool studies revealed C. difficile. Metronidazole 500mg 3 times a day for 14 days.He was discharged with this medication. His diabetes was also found to not be in control. His hemoglobin A1c was 9.9. He was at night Levemir was increased to 10 units. He was discharged on 10/08/16 in stable condition. Follow up with ID for syphilis and neurology for TIA. Pt Condition on Discharge: Stable Discharge Disposition: Discharge Home Discharge Instructions DIET: Follow Instructions for: As Tolerated, No Restrictions Activities you can perform: Regular-No Restrictions Follow up Referrals: Infectious Disease - [address] Marti Neurology - 1 Week with Salvatore Browning MD PCP Follow-up - 1 Week New Medications: Atorvastatin (Atorvastatin) 80 Mg Tab 80 MG PO HS, #30 TAB Clopidogrel (Plavix) 75 Mg Tab 75 MG PO DAILY, #30 TAB Metronidazole (Flagyl) 500 Mg Tab 500 MG PO Q8HR, #42 TAB Changed Medications: Insulin Detemir Inj (Levemir Inj) 1,000 unit/ 10 ML Vial 5 UNITS SQ BID for Blood Sugar Management, #60 UNITS 0 Refills (Changed from: 4 UNITS; HS) Do not mix with any other Insulin. Continued Medications: Cilostazol (Cilostazol) 50 Mg Tab 50 MG PO BID for INTERMITTENT CLAUDICATION, TAB 0 Refills Lisinopril (Lisinopril) 5 Mg Tab 5 MG PO HS for Blood Pressure Management, #30 TAB 0 Refills Metoprolol Succinate ER 24 HR (Toprol XL) 25 Mg Tab 12.5 MG PO DAILY, #30 TAB 0 Refills Pyridoxine (Vitamin B-6) 100 Mg Tab 100 MG PO DAILY for Nutritional Supplement, #30 TAB 0 Refills Discontinued Medications: Aspirin DR (Aspirin Adult Low Strength) 81 Mg Tabdr 81 MG PO DAILY, TAB Insulin Human Regular Inj (Novolin R Inj) 1,000 Unit/10 Ml Vial 0 SQ DIRECTED for Blood Sugar Management, #10 ML 0 Refills Sliding Scale As Directed. Simvastatin (Simvastatin) 10 Mg Tab 10 MG PO HS for Cholesterol Management, #30 TAB 0 Refills Myranda Ayon MD R1 Oct 09, 2016 14:04
--- NOTE | 2016-10-14 15:08 | HHI.FPPN ---
Addendum to progress note ADDENDUM Reason for addendum: Additonal documentation Additional information Called pt regarding results of syphilis tests. 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 Case discussed with infectious disease, who recommended outpatient treatment with penicillin, if pt refuses lumbar puncture, which pt did during hospitalization. Case discussed with son, who is main caregiver, and instructed [facility]. If unable to get treatment, can contact the [facility] as well. Informed him of where to retrieve the hospital records if needed. Pt to follow up with PCP. Juan Miguel Mejia MD, R2 Oct 14, 2016 15:08
== END 2016-10-08 19:52 | disposition home or self-care (01) | DRG 69 ==
LOC: NED 11:47 → NEDH 14:35 → OBSVTOIN 15:50 → N06A 20:17
PROVIDERS: ADMIT Family Medicine; ATTEND Family Medicine
DX: G45.9 Transient cerebral ischemic attack, unspecified (principal); L89.153 Pressure ulcer of sacral region, stage 3; A04.7 Enterocolitis due to Clostridium difficile; E11.65 Type 2 diabetes mellitus with hyperglycemia; E11.51 Type 2 diabetes mellitus with diabetic peripheral angiopathy without gangrene; Z68.1 Body mass index [BMI] 19.9 or less, adult; I25.10 Atherosclerotic heart disease of native coronary artery without angina pectoris; E78.00 Pure hypercholesterolemia, unspecified; I10 Essential (primary) hypertension; R63.4 Abnormal weight loss; R47.81 Slurred speech; M62.81 Muscle weakness (generalized); A53.9 Syphilis, unspecified; Z95.2 Presence of prosthetic heart valve; Z87.891 Personal history of nicotine dependence; Z79.4 Long term (current) use of insulin; I25.2 Old myocardial infarction; Z89.611 Acquired absence of right leg above knee; Z79.82 Long term (current) use of aspirin; Z95.5 Presence of coronary angioplasty implant and graft
CPT/HCPCS: 70450; 70544; 70551; 71010; 80048; 80061; 80307; 81001; 82550; 82607; 82948; 83036; 84439; 84443; 84484; 85025; 85027; 85597; 85598; 85610; 85613; 85652; 85730; 86038; 86039; 86140; 86146; 86147; 86160; 86162; 86225; 86592; 86593; 86703; 86780; 87205; 87328; 87329; 87425; 87493; 87506; 93005; 93225; 93226; 93306; 93880; 95819; 96372; J1650; J1815; J7030

== ENCOUNTER 2017-05-12 11:46 | Emergency (ER) | payer MEDICARE ==
[~2017-05-12 11:46] MED LIST changes: -ASPI325T; +ATOR80TA45 PO; +CILO50TA PO; -ISOS10TA; +LEVEMIR SQ; +LISI-519 PO; +METR-1 PO; -NITR.4T; -NOVONP2; +PLAV75TA29 PO; -PRIN5TAB; +PYRI100T PO; +TOPR25TA PO; -TOPR25TA2; -ZOCO40TA
[2017-05-12 12:17] VITALS: BP 135/58; PULSE 92; RESP 16; TEMP 97.9; O2SAT 99
[2017-05-12 13:59] LABS: PROTHROMBIN TIME - PATIENT 10.3 SEC (9.8-11.6)
[2017-05-12 14:14] LABS: BICARBONATE 22.6 MEQ/L (21.0-32.0); CALCIUM 10.1 MG/DL (8.5-10.1); CREATININE 1.66 MG/DL (0.60-1.30)
== END 2017-05-12 13:54 | disposition left against medical advice (07) ==
LOC: NED 11:46
DX: M79.606 Pain in leg, unspecified (principal)
CPT/HCPCS: 80048; 85610; 85730; 87040; 99281